=== PATIENT | male | born 1960 | race Caucasian/White ===

== ENCOUNTER 2020-09-02 08:32 | Outpatient (CLI) | payer OTHER, SELFPAY | END 2020-09-02 08:33 | disposition home or self-care (01) | LOC: CHSCOVIDVC 08:32 | PROVIDERS: PCP Nurse Practitioner Family | DX: Z23 Encounter for immunization (principal) | CPT/HCPCS: 0011A; 91301 ==

== ENCOUNTER 2020-09-30 08:17 | Outpatient (CLI) | payer OTHER, SELFPAY | END 2020-09-30 08:18 | disposition home or self-care (01) | LOC: CHSCOVIDVC 08:18 | PROVIDERS: PCP Nurse Practitioner Family | DX: Z23 Encounter for immunization (principal) | CPT/HCPCS: 0012A; 91301 ==

== ENCOUNTER 2023-10-18 09:26 | Outpatient (CLI) | payer OTHER, SELFPAY ==
[2023-10-18 10:11] LABS: Basophils Absolute Auto 0.05 K/mm3 (0.00-0.10); Basophils Percent Auto 0.9 % (0.0-1.0); Eosinophils Absolute Auto 0.18 K/mm3 (0.02-0.50); Eosinophils Percent Auto 3.3 % (1.0-6.0); Hematocrit 35.5 % (37.0-46.0); Hemoglobin 11.4 g/dL (12.4-15.3); Immature Granulocyte Absolute 0.02 K/mm3 (0.00-0.00); Immature Granulocyte Percent A 0.4 % (0.0-0.0); Immature Platelet Fraction Pct 15.9 % (1.0-7.0); Lymphocytes Absolute Auto 1.19 K/mm3 (1.10-4.50); Lymphocytes Percent Auto 21.7 % (18.0-42.0); Mean Corpuscular HGB Conc 32.1 g/dL (32-36); Mean Corpuscular Hemoglobin 26.1 pg (27.0-31.0); Mean Corpuscular Volume 81.2 fL (78.0-102.0); Mean Platelet Volume 14.6 fl (8.7-11.0); Monocytes Absolute Auto 0.32 K/mm3 (0.10-0.90); Monocytes Percent Auto 5.8 % (2.0-11.0); Neutrophils Absolute Auto 3.72 K/mm3 (1.70-7.20); Neutrophils Percent Auto 67.9 % (50.0-70.0); Platelet Count Result 115 K/mm3 (150-420); Red Blood Count 4.37 M/mm3 (4.70-6.10); Red Cell Distribution Width 14.5 % (11.6-14.4); White Blood Count 5.5 K/mm3 (4.8-10.8)
[2023-10-18 10:17] LABS: Alanine Aminotransferase 49 U/L (16-63); Alkaline Phosphatase 224 U/L (46-116); Anion Gap 7 mmol/L (4-12); Aspartate Amino Transferase 27 U/L (15-37); Bilirubin,Total 0.3 mg/dL (0.00-1.00); Blood Urea Nitrogen 10 mg/dL (7-18); Calcium 8.8 mg/dL (8.5-10.1); Carbon Dioxide 29 mmol/L (21-32); Chloride 106 mmol/L (98-108); Cholesterol 171 mg/dL (0-200); Estimated Glomerular Filt Rate > 60; Glucose 105 mg/dL (70-99); HDL Direct 35 mg/dL (40-60); LDL Cholesterol Calculated 110 mg/dL (<130); Osmolality Calculated 293 mOsm/kg (285-295); Potassium 4.2 mmol/L (3.5-5.1); Sodium 142 mmol/L (136-145); Total Protein 6.9 g/dL (6.4-8.2); Triglycerides 131 mg/dL (0-150)
== END 2023-10-18 09:27 | disposition home or self-care (01) ==
LOC: CHSLAB 09:27
PROVIDERS: PCP Family Medicine; Visit Provider Family Medicine
DX: M25.551 Pain in right hip (principal); Z13.6 Encounter for screening for cardiovascular disorders
CPT/HCPCS: 36415; 80053; 80061; 85025; 85055

== ENCOUNTER 2023-12-25 11:41 | Outpatient (CLI) | payer OTHER, SELFPAY ==
--- NOTE | ~2023-12-25 | XR_ITS ---
XR knee RT 3V 12/25/2023 12:10 INDICATION: Right knee pain PROCEDURE: 3 views right knee COMPARISON: No prior studies for comparison. FINDINGS: Fracture, dislocation or subluxation is not identified. No joint effusion. The soft tissues appear within normal limits. No foreign bodies are identified. IMPRESSION: 1: NO ACUTE BONE OR JOINT ABNORMALITY IDENTIFIED. Reviewed, dictated and finalized at location B.
--- NOTE | ~2023-12-25 | XR_ITS ---
XR hip BI 2V w AP pelvis 12/25/2023 12:10 Indication: Right hip pain Procedure: AP view of the pelvis and 2 views right each hip Comparison: No prior studies for comparison. Findings: There are sclerotic lesions of the pelvis and proximal aspect of the right femur, compatibl e with metastatic disease. No acute fracture or traumatic malalignment. Impression: 1: Multiple sclerotic lesions of the pelvis and right femur, consistent with metastases. Primary cons ideration is prostate cancer. Recommend further evaluation. Consider correlation with bone scan. Reviewed, dictated and finalized at location B. Impression: 1: Multiple sclerotic lesions of the pelvis and right femur, consistent with me tastases. Primary consideration is prostate cancer. Recommend further evaluatio n. Consider correlation with bone scan.
--- NOTE | ~2023-12-25 | XR_ITS ---
EXAMINATION: XR lumbar spine 2-3V DATE: 12/25/2023 12:10 INDICATION: Right hip and lower limb pain. Weakness. TECHNIQUE: 2 views of lumbar spine were obtained. COMPARISON: None. FINDINGS: There is 3 mm retrolisthesis of L2 on L3 and L3 on L4. There is mild chronic anterior wedgi ng of T12 vertebral body. There are sclerotic lesions in the pelvis and L4 vertebral body. There is m ildly decreased discitis at T12-L1 and L1-L2, moderately decreased disc at L2-L3, and mildly decrease d disc height at L3-L4 and L4-L5. There is multilevel facet joint osteoarthritis, severe in lower lum bar spine. IMPRESSION: 1. Sclerotic lesions of bone, consistent with metastatic disease. 2. Moderate lumbar spondylosis. Reviewed, dictated and finalized at location A.
== END 2023-12-25 11:42 | disposition home or self-care (01) ==
LOC: CHSIMG 11:43
PROVIDERS: PCP Family Medicine; Visit Provider Family Medicine
DX: M13.0 Polyarthritis, unspecified (principal); M89.9 Disorder of bone, unspecified; M43.06 Spondylolysis, lumbar region
CPT/HCPCS: 72100; 73521; 73562

== ENCOUNTER 2024-01-02 10:46 | Outpatient (CLI) | payer OTHER, SELFPAY ==
[2024-01-02 12:01] LABS: Erythrocyte Sedimentation Rate 35 mm/hr (0-20)
[2024-01-02 12:14] LABS: CRP 1.9 mg/dL (0.0-0.9)
[2024-01-02 12:22] LABS: Prostate Specific Antigen > 100.0 ng/mL (< OR = 4.0)
== END 2024-01-02 10:47 | disposition home or self-care (01) ==
LOC: CHSLAB 10:49
PROVIDERS: PCP Family Medicine; Visit Provider Family Medicine
DX: R35.1 Nocturia (principal); M89.9 Disorder of bone, unspecified
CPT/HCPCS: 36415; 84153; 85652; 86140; G0103

== ENCOUNTER 2024-02-09 11:22 | Outpatient (CLI) | payer OTHER, SELFPAY ==
--- NOTE | ~2024-02-09 | PE_ITS ---
EXAMINATION: PET skull to mid thigh DATE: 02/09/2024 14:11 INDICATION: Prostate cancer with hormone sensitive status. TECHNIQUE: 5.365 mCi of Ga-68 gozetotide was administered intravenously. Low dose computed tomography (CT) images were acquired from the base of the brain to the proximal thighs for attenuation correcti on and anatomic localization. Automated exposure control was employed. Dose-length product (DLP) was mGy-cm. Positron emission tomography (PET) images were acquired in the same distribution. COMPARISON: None FINDINGS: Head/neck: There are no pathologically enlarged lymph nodes. There are scattered sclerotic lesions of bone with increased activity. Chest: There is mild scarring at the lung apices. A calcified right lung nodule and calcified right h ilar lymph nodes are consistent with old granulomatous disease. There is mild atelectasis bilaterally . No pleural effusion. The heart size is normal. No pericardial effusion. There are normal-sized subc arinal and left hilar lymph nodes with increased activity. There are widespread sclerotic lesions of bone with increased activity. Abdomen/pelvis/proximal thighs: Calcifications in the liver and spleen are consistent with old granul omatous disease. The gallbladder, pancreas, adrenal glands, and kidneys are normal. The prostate is m oderately enlarged with maximum SUV of 6.2. There is diffuse bladder wall thickening, likely secondar y to chronic obstruction. There is a left inguinal hernia containing fat. There is diverticulosis of the colon without evidence of diverticulitis. The appendix is normal. There are no dilated loops of b owel. There are mildly enlarged bilateral external iliac, aortocaval, and left para-aortic lymph node s with increased activity. There is a normal-sized left internal iliac node with increased activity. There are widespread sclerotic lesions of bone with increased activity. IMPRESSION: 1. Moderately enlarged prostate with increased activity, consistent with primary malignancy. 2. Lymphadenopathy in the chest, retroperitoneum, and pelvis with increased activity and widespread b one lesions with increased activity, consistent with metastatic disease. Reviewed, dictated and finalized at location A. IMPRESSION: 1. Moderately enlarged prostate with increased activity, consistent with primar y malignancy. 2. Lymphadenopathy in the chest, retroperitoneum, and pelvis with increased act ivity and widespread bone lesions with increased activity, consistent with meta static disease.
== END 2024-02-09 11:23 | disposition home or self-care (01) ==
PROVIDERS: PCP Family Medicine; Visit Provider Urology
DX: C61 Malignant neoplasm of prostate (principal); R59.0 Localized enlarged lymph nodes
CPT/HCPCS: 78815; A9552

== ENCOUNTER 2024-02-13 15:33 | Outpatient (CLI) | payer OTHER, SELFPAY ==
[2024-02-13 15:53] LABS: Basophils Absolute Auto 0.04 K/mm3 (0.00-0.10); Basophils Percent Auto 0.7 % (0.0-1.0); Eosinophils Absolute Auto 0.15 K/mm3 (0.02-0.50); Eosinophils Percent Auto 2.6 % (1.0-6.0); Hematocrit 33.7 % (37.0-46.0); Hemoglobin 10.5 g/dL (12.4-15.3); Immature Granulocyte Absolute 0.04 K/mm3 (0.00-0.00); Immature Granulocyte Percent A 0.7 % (0.0-0.0); Lymphocytes Percent Auto 24.3 % (18.0-42.0); Mean Corpuscular HGB Conc 31.2 g/dL (32-36); Mean Corpuscular Volume 77.1 fL (78.0-102.0); Monocytes Absolute Auto 0.25 K/mm3 (0.10-0.90); Monocytes Percent Auto 4.3 % (2.0-11.0); Neutrophils Absolute Auto 3.87 K/mm3 (1.70-7.20); Neutrophils Percent Auto 67.4 % (50.0-70.0); Platelet Count Result 212 K/mm3 (150-420); Red Blood Count 4.37 M/mm3 (4.70-6.10); Red Cell Distribution Width 15.8 % (11.6-14.4); White Blood Count 5.8 K/mm3 (4.8-10.8)
[2024-02-13 16:54] LABS: Alanine Aminotransferase 29 U/L (16-63); Albumin Level 2.9 g/dL (3.4-5.0); Alkaline Phosphatase 493 U/L (46-116); Anion Gap 5 mmol/L (4-12); Aspartate Amino Transferase 12 U/L (15-37); Bilirubin,Total 0.3 mg/dL (0.00-1.00); Blood Urea Nitrogen 14 mg/dL (7-18); Calcium 8.8 mg/dL (8.5-10.1); Carbon Dioxide 31 mmol/L (21-32); Chloride 101 mmol/L (98-108); Estimated Glomerular Filt Rate > 60; Ferritin 243 ng/mL (26-388); Glucose 165 mg/dL (70-99); Iron 19 ug/dL (65-175); Osmolality Calculated 288 mOsm/kg (285-295); Percent Iron Saturation 8 % (12-57); Potassium 4.4 mmol/L (3.5-5.1); Sodium 137 mmol/L (136-145); Total Protein 6.6 g/dL (6.4-8.2); Vitamin B12 524 pg/mL (193-986)
[2024-02-22 00:18] LABS: Testosterone Free 1.5 pg/mL (35.0-155.0); Testosterone Total 8 ng/dL (250-1100)
== END 2024-02-13 15:34 | disposition home or self-care (01) ==
PROVIDERS: PCP Family Medicine; Visit Provider Internal Medicine Hematology & Oncology
DX: D64.9 Anemia, unspecified (principal); C61 Malignant neoplasm of prostate
CPT/HCPCS: 36415; 80053; 82607; 82728; 83540; 83550; 84402; 84403; 85025

== ENCOUNTER 2024-02-19 10:51 | Outpatient (CLI) | payer OTHER, SELFPAY ==
[2024-02-19 11:25] LABS: Partial Thromboplastin Time 28.5 Sec (23.9-30.70); Prothrombin Time 11.4 Seconds (9.50-12.1)
== END 2024-02-19 10:52 | disposition home or self-care (01) ==
LOC: CHSLAB 10:52
PROVIDERS: PCP Family Medicine; Visit Provider Surgery
DX: C61 Malignant neoplasm of prostate (principal); R10.13 Epigastric pain; R94.5 Abnormal results of liver function studies; D50.9 Iron deficiency anemia, unspecified
CPT/HCPCS: 36415; 85610; 85730

== ENCOUNTER 2024-02-20 07:30 | Outpatient (CLI) | payer OTHER, SELFPAY ==
--- NOTE | ~2024-02-20 | NM_ITS ---
EXAMINATION: NM bone scan whole body DATE: 02/20/2024 11:12 INDICATION: Prostate cancer TECHNIQUE: 25.2 mCi Tc-99m HDP was administered intravenously. Delayed whole-body scintigrams were o btained. COMPARISON: PET/CT dated 02/09/2024 FINDINGS: Similar pattern of widespread uptake throughout the axial and appendicular skeleton as seen on the pr ior PSMA PET study. The most prominent lesions are present at the pelvis and proximal right femur. Th e lesions appear more numerous and conspicuous on the prior study likely reflecting increased sensiti vity with multiple small lesions seen in the proximal right femur and bilateral proximal humeri which are in the cerebral or nearly indiscernible on the current study. IMPRESSION: 1. Numerous scattered foci of abnormal bone uptake throughout the axial and appendicular skeleton con sistent with widespread metastatic disease. Of note there is more extensive disease than evident on t he current study which is better appreciated on the more sensitive prior PSMA PET study. Reviewed, dictated and finalized at location A. IMPRESSION: 1. Numerous scattered foci of abnormal bone uptake throughout the axial and jose endicular skeleton consistent with widespread metastatic disease. Of note there is more extensive disease than evident on the current study which is better ap preciated on the more sensitive prior PSMA PET study.
== END 2024-02-20 07:31 | disposition home or self-care (01) ==
PROVIDERS: PCP Family Medicine; Visit Provider Internal Medicine Hematology & Oncology
DX: C61 Malignant neoplasm of prostate (principal)
CPT/HCPCS: 78306; A9503

== ENCOUNTER 2024-02-25 03:00 | Day surgery (SDC) | payer OTHER, SELFPAY ==
--- NOTE | 2024-02-18 15:01 | PC.NURSE ---
Report to the Outpatient Waiting Room, entrance under the green pavilion located off [facility], at time 10:15 AM on date 02/25/24 . Planned Procedure Time: __12:15PM .? Time changes happen often and if your time is changed the preop area will call you the afternoon before. - You and your visitor will be asked to self-screen and do not enter if you have any COVID symptoms. Please call surgeon if you need to reschedule. - A mask is optional within the hospital at this time. Patients may have clear liquids (water, carbonated beverages, clear teas, apple juice) until 3 hours prior to surgery( 9:15AM) with a maximum of 20 ounces. - No food from midnight until time of surgery and no smoking - Infants may have breast milk until 4 hours before surgery, formula 6 hours prior to surgery. - Children will be allowed to drink immediately following surgery.? If applicable, please bring a bottle or sippy cup to assist with drinking. Juice, water, soda, and popsicles are readily available.? For infants on formula, please bring formula the day of surgery.? Pacifiers are allowed. Take only the following medications with a SIP of water on the morning of surgery: _OXYCODONE IF NEEDED FOR PAIN DO NOT STOP ANY OF YOUR OTHER PRESCRIPTION MEDICATIONS PRIOR TO SURGERY EXCEPT THE FOLLOWING Medications to discontinue per physician HOLD ALL VITAMINS AND SUPPLEMENTS 3 DAYS PRE OP Date to take last dose 02/21/24 Please no make-up, nail frisian, hairspray, perfume, deodorant, or body powder the day of surgery.? No jewelry (including any body piercings) or valuables the day of surgery, leave them at home.? Please take a shower or bath the night before, or the morning of, surgery with an antibacterial soap.? Wear comfortable, loose fitting clothing.? Children are encouraged to wear pajamas. - Jewelry must be removed prior to entering the operating room.? Rings and piercings that are not removed may be cut off. - The hospital will not accept responsibility for valuables.? - Please leave all valuables, including medications, at home the day of surgery. If you are going home after surgery, a licensed shuttle driver must drive you home.? - NO public transportation without another adult if you receive anesthesia. - We recommend that an adult stay with you for 24 hours following discharge. - We also recommend that you do not drive, make important decision, drink alcoholic beverages, or take any drugs that were not prescribed by your health care provider for at least 24 hours after your discharge time. For Pediatric surgeries, we recommend two adults accompany the child home. Follow any additional instructions given to you from your surgeon. Telephone instructions given to _PT and asked if any additional questions and then verbalized understanding. Patient advised to call surgeon office or pre surgery nurse liaison [phone] if any additional questions.
[2024-02-18 15:11] VITALS: BMI 27.5
--- NOTE | 2024-02-24 17:18 | P.SS_ITS ---
Same Day Admit/Disch: [facility] History of Present Illness Chief complaint: Prostate Ca Narrative: Hao Rea is a 63 year old male who presented with right hip pain and was found to have metastatic prostate cancer. He is to undergo chemotherapy as well as radiation therapy. Was requested to place a Port-A-Cath for IV access for chemotherapy. He is taken to surgery at this time for Port-A-Cath placement PMFSH Past Medical History Medical History GERD (gastroesophageal reflux disease) Social History Social History Smoking status: Never smoker Second hand tobacco smoke exposure: No Alcohol intake: current Drinks per week: 1 Substance use: never Living arrangements: with family Spiritual care concerns: No Same Day Admit/Disch: Med Pre-admit Medications Home Medications Medication Instructions Recorded Confirmed Type tamsulosin 0.4 mg capsule 0.4 mg PO DAILY #90 caps 01/02/24 02/25/24 Rx calcium 600 mg (as 1 tablet PO DAILY 02/18/24 02/25/24 History carbonate)-vitamin D3 10 mcg (400 unit) tablet (Calcium 600 + D(3)) darolutamide 300 mg tablet 300 mg PO BID 02/18/24 02/25/24 History fentanyl 12 mcg/hr transdermal 1 patch transdermal Q72H 02/18/24 02/25/24 History patch multivitamin 1 tablet PO DAILY 02/18/24 02/25/24 History oxycodone-acetaminophen 5 mg-325 1 tablet PO PRN PRN Pain 02/18/24 02/25/24 History mg tablet ibuprofen 200 mg capsule 200 mg PO Q6H PRN Pain, Moderate 02/20/24 02/25/24 History Review of Systems Review of Systems All systems reviewed & are unremarkable except as noted in HPI and below (HPI) Exam Const: General: comfortable, no acute distress, alert and awake HENMT: Head: normocephalic and atraumatic Mouth: Yes Normal oral and palatal mucosa present Eyes: Conjunctivae: conjunctivae normal Pupils: Equal, round and reactive pupils present EOM: EOMs intact bilaterally Neck: Neck: normal visual inspection, no lymphadenopathy and nontender Resp: Effort & Inspection: normal respiratory effort Auscultation: clear to auscultation bilaterally Cardio: Rate: regular rate Rhythm: regular rhythm Heart sounds: no gallops, no murmurs and no rubs GI: Inspection: non-distended GI Palp: Yes Soft to palpation, No Tenderness to palpation present (GI), No Hepatomegaly present and No Splenomegaly present Skin: Lesions: no lesions Rashes: no rashes Neuro: General: no focal motor deficits and CN's II-XI intact bilaterally Cranial nerves: Yes Equal, round and reactive pupils present, Yes Bilaterally intact EOM present, Yes facial symmetry and Yes Midline tongue present Speech: normal speech Motor exam (neuro): 5/5 motor strength present thr oughout and Motor abnormalities not present Extrem: General: no clubbing, cyanosis or edema and edema Psych: Affect: normal affect Thought process: Normal thought process present Insight: Good insight present (Psych) DS: Summary Time Spent with Patient Time attestation: Total time spent providing and/or coordinating discharge services: DS: Admitting Diagnosis Discharge Date 02/25/2024 Admitting Diagnosis * Metastatic prostate cancer * Inadequate venous access for chemotherapy-plan to proceed with Port-A-Cath placement. I discussed the procedure, risks, alternatives, benefits with the patient. All questions were answered. He understands and wishes to go ahead. DS: Discharge Diagnosis Discharge Diagnosis (1) Prostate cancer: Code(s): C61 - Malignant neoplasm of prostate Status: Acute (2) Greater trochanteric pain syndrome of right lower extremity: Code(s): M25.551 - Pain in right hip Status: Acute (3) Admission for fitting of Port-A-Cath: Code(s): Z45.2 - Encounter for adjustment and management of vascular access device Status: Acute Assessment and Plan: Left subclavian vein Port-A-Cath placed under fluoroscopy and using ultrasound 02/25/[address] Collins Discharge Plan Discharge Patient Disposition: Home, Self-Care Discharge Instructions: Medications: Patient to resume all previous home medication Take Tylenol for postoperative pain. If this is not adequate, okay to take the Percocet or the ibuprofen you already have. Treatments: May bathe or shower tomorrow. May return to work or driving in 24 hours unless taking narcotic pain medications Follow-up with medical oncologist for chemotherapy. Only need to see Surgeon for follow up if having problems. Stand Alone Forms: General Discharge Instructions Follow-up/Referrals: Jadon Dominguez MD [Physician] - Keep Reg. Scheduled Appt. Discharge Medications: Continued ibuprofen 200 mg Capsule 200 mg PO Q6H PRN (Reason: Pain, Moderate) oxycodone-acetaminophen 5-325 mg tablet 1 tablet PO PRN PRN (Reason: Pain) fentanyl 12 mcg/hr Patch 72 Hour 1 patch TRANSDERMAL Q72H darolutamide 300 mg Tablet 300 mg PO BID calcium carbonate-vitamin D3 [Calcium 600 + D(3)] 600 mg-10 mcg (400 unit) Tablet 1 tablet PO DAILY multivitamin Tablet 1 tablet PO DAILY tamsulosin 0.4 mg capsule 0.4 mg PO DAILY Qty: 90 0RF
--- NOTE | ~2024-02-25 | XR_ITS ---
XR chest port-a-cath/central Ordering provider: Jovanny Collins MD History: 63 years Male with . POST-OP, INSERTION SARKIS CATH . Comparison: July 19, 2009 FINDINGS: MEDIASTINUM: The cardiac silhouette is slightly enlarged. Left Port-A-Cath with the tip overlying sup erior vena cava. Congestive tl. LUNGS: No infiltrates, effusions or pneumothorax. prominent markings in the lower lobes. OTHER: No free air under the diaphragm. IMPRESSION: No acute cardiopulmonary pathology. Reviewed, dictated and finalized at location A.
--- NOTE | ~2024-02-25 | XR_ITS ---
EXAMINATION: XR fl guide central line place DATE: 02/25/2024 13:58 INDICATION: Port placement. TECHNIQUE: 2 intraoperative fluoroscopic views of the chest were obtained. I was not present. Fluoros copy exposure time was 391 seconds. COMPARISON: None. FINDINGS: There is a left subclavian port with tip at superior cavoatrial junction. IMPRESSION: 1. Port tip at superior cavoatrial junction. Reviewed, dictated and finalized at location A.
[2024-02-25 10:26] VITALS: BP 108/66; PULSE 64; RESP 18; TEMP 36.6; O2SAT 100
--- NOTE | 2024-02-25 10:39 | P.PNAN_ITS ---
Anes - Initial Pre Proc Eval Procedure: Operation Date: 02/25/24 12:15 Proposed Procedures p Insertion Az Cath - Jovanny Collins MD Date/Time: 02/25/24 10:39 Surgeon: Jovanny Collins MD Pre Op Diagnosis: Prostate Ca Patient Data Age: 63 Gender: M Height: 1.91 m Weight: 99.4 kg Last Vital Signs Temp 36.6 C 02/25/24 10:26 Pulse 64 02/25/24 10:26 Resp 18 02/25/24 10:26 BP 108/66 02/25/24 10:26 Pulse Ox 100 02/25/24 10:26 O2 Del Method Room Air 02/25/24 10:26 Allergies Allergy/AdvReac Type Severity Reaction Status Date / Time No Known Allergies Allergy Verified 02/18/24 14:50 Home Medications Medication Instructions Recorded Confirmed Type tamsulosin 0.4 mg capsule 0.4 mg PO DAILY #90 caps 01/02/24 02/25/24 Rx calcium 600 mg (as 1 tablet PO DAILY 02/18/24 02/25/24 History carbonate)-vitamin D3 10 mcg (400 unit) tablet (Calcium 600 + D(3)) darolutamide 300 mg tablet 300 mg PO BID 02/18/24 02/25/24 History fentanyl 12 mcg/hr transdermal 1 patch transdermal Q72H 02/18/24 02/25/24 History patch multivitamin 1 tablet PO DAILY 02/18/24 02/25/24 History oxycodone-acetaminophen 5 mg-325 1 tablet PO PRN PRN Pain 02/18/24 02/25/24 History mg tablet ibuprofen 200 mg capsule 200 mg PO Q6H PRN Pain, Moderate 02/20/24 02/25/24 History Patient hx anesthesia problems: none Family hx anesthesia problems: none Results Review: All pre-operative results and documents have been reviewed as part of the pre- operative evaluation. [facility] Past Medical History Medical History GERD (gastroesophageal reflux disease) Social History Social History Smoking status: Never smoker Second hand tobacco smoke exposure: No Alcohol intake: current Drinks per week: 1 Substance use: never Living arrangements: with family Spiritual care concerns: No Anes - Eval Final PreProcedure Day of Procedure 02/25/24 10:39 Patient weight: overweight Heart: regular rate and rhythm Lungs: clear to auscultation Airway: Mallampati scale class II Neurological: alert and oriented Last oral intake: >/= 8 hours ASA classification: III Emergent: no Anesthetic plan: proceed Anesthesia type and monitoring: general GIVS and standard monitoring Results Review: All pre-operative results and documents have been reviewed as part of the pre- operative evaluation. Informed Consent: The patient's anesthetic plan and its attendant risks and benefits were discussed with the patient/family/POA. Questions were solicited and answers provided to the satisfaction of the patient/family/POA.
[2024-02-25] MEDS: KETOROLAC 15 MG/ML VIAL (*BKC) IV PUSH (10:40)
[2024-02-25] MEDS: LACTATED RINGERS 1,000 ML 30 ML IV CONT (10:40)
--- NOTE | 2024-02-25 11:13 | WPDHPUPDATE1 ---
History and Physical Update Update Date/Time: 02/25/24 11:13 History and Physical has been reviewed, including an updated exam of the patient. There are NO changes in the patient's condition. Risks, benefits, and alternatives have been discussed and questions answered. Patient agrees to proceed with procedure.
--- NOTE | 2024-02-25 12:10 | WPDANESEPPF ---
Anes - Initial Pre Proc Eval Procedure: Operation Date: 02/25/24 12:15 Proposed Procedures p Insertion Az Cath - Jovanny Collins MD Date/Time: 02/25/24 12:10 Surgeon: Jovanny Collins MD Pre Op Diagnosis: Prostate Ca Patient Data Age: 63 Gender: M Height: 1.91 m Weight: 99.4 kg Last Vital Signs Temp 97.8 F 02/25/24 10: Pulse 64 02/25/24 10:26 Resp 18 02/25/24 10:26 BP 108/66 02/25/24 10:26 Pulse Ox 100 02/25/24 10:26 O2 Del Method Room Air 02/25/24 10:26 Allergies Allergy/AdvReac Type Severity Reaction Status Date / Time No Known Allergies Allergy Verified 02/18/24 14:50 Home Medications Medication Instructions Recorded Confirmed Type tamsulosin 0.4 mg capsule 0.4 mg PO DAILY #90 caps 01/02/24 02/25/24 Rx calcium 600 mg (as 1 tablet PO DAILY 02/18/24 02/25/24 History carbonate)-vitamin D3 10 mcg (400 unit) tablet (Calcium 600 + D(3)) darolutamide 300 mg tablet 300 mg PO BID 02/18/24 02/25/24 History fentanyl 12 mcg/hr transdermal 1 patch transdermal Q72H 02/18/24 02/25/24 History patch multivitamin 1 tablet PO DAILY 02/18/24 02/25/24 History oxycodone-acetaminophen 5 mg-325 1 tablet PO PRN PRN Pain 02/18/24 02/25/24 History mg tablet ibuprofen 200 mg capsule 200 mg PO Q6H PRN Pain, Moderate 02/20/24 02/25/24 History Patient hx anesthesia problems: none Family hx anesthesia problems: none Results Review: All pre-operative results and documents have been reviewed as part of the pre-operative evaluation. [facility] Past Medical History Medical History GERD (gastroesophageal reflux disease) Social History Social History Smoking status: Never smoker Second hand tobacco smoke exposure: No Alcohol intake: current Drinks per week: 1 Substance use: never Living arrangements: with family Spiritual care concerns: No Anes - Eval Final PreProcedure Day of Procedure 02/25/24 12:10 Patient weight: normal Heart: regular rate and rhythm Lungs: clear to auscultation Airway: Mallampati scale class II Neurological: alert and oriented Last oral intake: >/= 8 hours ASA classification: II Emergent: no Anesthetic plan: proceed Anesthesia type and monitoring: general GIVS and standard monitoring Results Review: All pre-operative results and documents have been reviewed as part of the pre-operative evaluation. Prostate ca w bone mets. Pt prev in excellent health without restriction. Now for portacath for initiation of chemo. Informed Consent: The patient's anesthetic plan and its attendant risks and benefits were discussed with the patient/family/POA. Questions were solicited and answers provided to the satisfaction of the patient/family/POA.
[2024-02-25] MEDS: ceFAZolin 2 GM/D5W 50 ML 2 GM/50 ML BAG IVPB (12:26)
[2024-02-25] MEDS: BUPIVACAINE/EPINEPHRINE 0.5% 50 ML VIAL 20 ML INFILTRATE (12:49)
[2024-02-25] MEDS: HEPARIN SODIUM 5,000 UNITS/ML VIAL 1000 UNITS IRRIGATION (12:53)
[2024-02-25 14:04] VITALS: BP 102/54; PULSE 63; RESP 16; O2SAT 99
[2024-02-25 14:34] VITALS: BP 104/61; PULSE 56; RESP 16
--- NOTE | 2024-02-25 14:44 | W.PM.PROC2 ---
Procedure Note - Detailed Date of Procedure 02/27/24 Pre-op Diagnosis Prostate Ca, inadequate venous access for chemotherapy Post-op Diagnosis Same Procedure Performed Attempted placement left internal jugular vein Port-A-Cath, placement left subclavian Port-A-Cath using ultrasound and under fluoroscopy Surgeon Jovanny Collins MD Plumbing Assembler Flower SYED Anesthesia General (G IV S) and Local Indications Patient has prostate cancer with bony metastasis that are painful. He is going to be receiving chemotherapy and is taken to surgery now for placement of a Port-A-Cath for vascular access. Findings There was a very narrow angle between left clavicle and 1st rib. This made attempts at the left subclavian insertion quite difficult. I tried extensively to place the Port-A-Cath via the left internal jugular vein but there was an acute angulation at the left innominate vein that I could not get the Port-A-Cath tubing past. Eventually, under steep Trendelenburg, I was able to get left subclavian access and the Port-A-Cath placed at the subclavian position. This was a very difficult placement. It took 90 minutes which is 3 times longer than usual. Blood loss was at least 50 cc which is 5 times or more what it usually is. Multiple punctures and uses of C-arm as well as 3 different Port-A-Cath trays were required. This was 1 of the most difficult Port-A-Cath placements I have performed. Description of Procedure The patient was taken to surgery and anesthesia was introduced. The left subclavian and left neck were prepped and draped. I marked the proposed incision for the Port-A-Cath on the left chest just under the clavicle. Local was then infiltrated in this area including the subcutaneous and pectoralis. Incision was made and dissection was carried down through the subcutaneous. Cautery was used for hemostasis. Dissection was continued through the pectoralis major fascia. The fascia was then elevated and a subfascial pocket was then created opposite the clavicle. From there, attempts were made to pass between the clavicle and the 1st rib. None of these were successful. We draped out the ultrasound so that it could be used in the sterile field. Under ultrasound guidance I cannulated the left internal jugular vein and was able to pass a guidewire to the superior vena cava. Passage of the guidewire did require some maneuvering and due to the acute angulation between the internal jugular vein and the innominate vein on the left side. Eventually it did pass. I then measured the length of Port-A-Cath that would be needed using C-arm fluoroscopy and cut the Port-A-Cath to the appropriate length. I then passed serial dilators over the guidewire. Each of these passed into the upper portion of the superior vena cava. The largest dilator with the sleeve was then also passed over the guidewire. All of these dilators and the sleeve were passed using C-arm fluoroscopy for guidance. The dilator and sleeve also was in the upper superior vena cava. I removed the dilator and the guidewire, leaving the sleeve. I then attempted to pass the Port-A-Cath tubing down the sleeve and into the superior vena cava. I tried maneuvering and shortening the sleeve but still could not get the Port-A-Cath to pass into the left innominate vein. I then passed the large introducer or dilator through the sleeve and was able to maneuver it into the superior vena cava. We then got out another Port-A-Cath kit. I passed a new guidewire through the dilator and into the superior vena cava. I then passed the sleeve and dilator over the guidewire into what appeared to be good position. Trying to keep the sleeve as straight as possible, I removed the guidewire and introducer. Unfortunately, the sleeve kinked and again I was unable to pass the Port-A-Cath tubing beyond the internal jugular vein. I then removed the sleeve and the Port-A-Cath tubing. Using ultrasound, I cannulated the internal jugular vein at a different location. This time, I was unable to get even the Port-A-Cath guidewire to pass into the left innominate vein. The guidewire was then removed. Pressure was held on the neck. I placed the patient in steep Trendelenburg. I took 1 more try at cannulating the left subclavian vein and was at this point successful. The guidewire passed into the superior vena cava by fluoroscopy. Patient was taken out of Trendelenburg and placed in slight reverse Trendelenburg. Using fluoroscopy, I measured the length of the Port-A-Cath tubing that would be needed. This was on the 3rd Port-A-Cath that I had opened. The Port-A-Cath was cut to the appropriate length. Serial dilators were passed over the guidewire and finally the largest dilator and sleeve were passed. The guidewire and dilator were removed. Port-A-Cath passed through the sleeve and into the superior vena cava by fluoroscopy. The sleeve was removed. Port-A-Cath was checked and aspirated blood easily. It flushed very easily as well. It was checked both before closure of the pocket and after closure of the pocket and worked well on both occasions. I then used 3-0 silk suture and sutured the Port-A-Cath to the pectoralis major muscle. I closed the pocket with running 2 layer closure of 2-0 Vicryl. The skin was closed with running 4-0 Monocryl skin suture. The wound was dressed with Exofin surgical adhesive. Sponge and needle counts were correct x2. Patient was awakened and taken to the step-down unit in good condition. Implants Vortex Port-A-Cath left subclavian position tip in distal SVC right atrial junction Estimated Blood Loss -50 Drains No Packing No Pathology None sent Complications None Condition Stable Disposition Same day [facility] Billing Surgery - Charge Forward: Surgery Billing (Attempted placement of left internal jugular vein Port-A-Cath, placement left subclavian vein Port-A-Cath under fluoroscopy and using ultrasound; apply -22 modifier for increased difficulty)
[2024-02-25 15:04] VITALS: BP 105/60; PULSE 51; RESP 16
== END 2024-02-25 15:15 | disposition home or self-care (01) ==
PROVIDERS: PCP Family Medicine; Visit Provider Surgery
PROC: (CPT 36561; principal; 2024-02-25 12:15)
DX: C61 Malignant neoplasm of prostate (principal); K21.9 Gastro-esophageal reflux disease without esophagitis; Z79.891 Long term (current) use of opiate analgesic; Z79.1 Long term (current) use of non-steroidal anti-inflammatories (NSAID)
CPT/HCPCS: 36561; 77001; C1788; J0690; J1100; J1644; J1885; J2003; J2405; J2704; J3010; J7030; J7120

== ENCOUNTER 2024-04-21 11:41 | Outpatient (CLI) | payer MEDICARE, OTHER, SELFPAY ==
--- NOTE | ~2024-04-21 | XR_ITS ---
XR chest 2V Ordering provider: Heber Fairbanks DO History: 63 years Male with . R06.00 - Dyspnea, SOB . Comparison: None. FINDINGS: MEDIASTINUM: The cardiac silhouette is not enlarged. Left Port-A-Cath with the tip overlying the supe rior vena cava. LUNGS: No infiltrates, effusions or pneumothorax. OTHER: No free air under the diaphragm. IMPRESSION: No acute cardiopulmonary pathology. Reviewed, dictated and finalized at location A. STANT FINANCE DIRECTOR
--- NOTE | 2024-04-21 11:55 | ECG_ITS ---
Test Date: 2024-04-21 12:10:51 Measurements Intervals [place] Rate: 78 P: 63 WY: 161 QRS: 65 QRSD: 93 T: 58 QT: 372 QTc: 424 Interpretive Statements SINUS RHYTHM No previous ECG available for comparison Electronically Signed On 04-21-2024 14:18:26 MONEY EXAMINER by Sterling Reyes M.D.
[2024-04-21 11:58] LABS: Hematocrit 37.7 % (37.0-46.0); Hemoglobin 12.3 g/dL (12.4-15.3); Immature Platelet Fraction Pct 16.7 % (1.0-7.0); Mean Corpuscular HGB Conc 32.6 g/dL (32-36); Mean Corpuscular Hemoglobin 25.9 pg (27.0-31.0); Mean Corpuscular Volume 79.4 fL (78.0-102.0); Platelet Count Result 92 K/mm3 (150-420); Red Blood Count 4.75 M/mm3 (4.70-6.10); Red Cell Distribution Width 18.8 % (11.6-14.4); White Blood Count 3.4 K/mm3 (4.8-10.8)
[2024-04-21 12:34] LABS: SARS-CoV-2 RNA PCR Negative (Negative)
[2024-04-21 12:39] LABS: Influenza A QL RT-PCR Negative (Negative); Influenza B QL RT-PCR Negative (Negative); RSV RNA, RT-PCR Negative (Negative)
[2024-04-21 12:52] LABS: Band Neutrophils Percent 1 % (0-6); Basophils Absolute Manual 0.06 K/mm3 (0-0.1); Basophils Percent Manual 2 % (0-1); Eosinophils Percent Manual 0 % (1-6); Lymphocytes Absolute Manual 1.15 K/mm3 (1.1-4.5); Lymphocytes Percent Manual 34 % (18-44); Monocytes Absolute Manual 0.13 K/mm3 (0.1-0.90); Monocytes Percent Manual 4 % (3-9); Neutrophils Absolute Manual 1.97 K/mm3 (1.3-6.7); Neutrophils Percent Manual 57 % (46-73); Platelet Estimate Decreased (Adequate); Total Cells Counted 100
[2024-04-21 16:27] LABS: Albumin Level 3.5 g/dL (3.4-5.0); Alkaline Phosphatase 92 U/L (46-116); Anion Gap 12 mmol/L (4-12); Aspartate Amino Transferase 16 U/L (15-37); Bilirubin,Total 0.5 mg/dL (0.00-1.00); Blood Urea Nitrogen 13 mg/dL (7-18); Carbon Dioxide 24 mmol/L (21-32); Chloride 104 mmol/L (98-108); Estimated Glomerular Filt Rate > 60; Glucose 97 mg/dL (70-99); Osmolality Calculated 290 mOsm/kg (285-295); Potassium 4.8 mmol/L (3.5-5.1); Sodium 140 mmol/L (136-145); Troponin I 6.9 ng/L (0.00-60.4)
[2024-04-21 17:02] LABS: Alanine Aminotransferase 27 U/L (16-63); Calcium 9.2 mg/dL (8.5-10.1)
== END 2024-04-21 11:42 | disposition home or self-care (01) ==
LOC: CHSLAB 11:44
PROVIDERS: PCP Family Medicine; Visit Provider Family Medicine
DX: C61 Malignant neoplasm of prostate (principal); R00.0 Tachycardia, unspecified; R06.00 Dyspnea, unspecified; Z20.822 Contact with and (suspected) exposure to COVID-19
CPT/HCPCS: 36415; 71046; 80053; 84484; 85025; 85055; 87637; 93005

== ENCOUNTER 2024-04-22 13:37 | Outpatient (CLI) | payer MEDICARE, OTHER, SELFPAY ==
--- NOTE | ~2024-04-22 | CT_ITS ---
EXAMINATION: CTA chest PE protocol DATE: 04/22/2024 14:38 INDICATION: Pulmonary emphysema without acute cor pulmonale TECHNIQUE: Computed tomography (CT) pulmonary angiogram of the chest was performed with 100 mL Omnipa que-350 intravenous contrast. Additional 3D reconstructions utilizing coronal maximum intensity proje ction (MIP) were performed. Automated exposure control and iterative reconstruction technique were em ployed. The dose-length product was 100 mGy-cm. COMPARISON: None FINDINGS: No pulmonary embolism. Mild dependent atelectasis in the bilateral lower lobes. No pneumonia, pulmona ry edema, pleural effusion or pneumothorax. Heart size is normal. No pericardial effusion. Thoracic a tex is normal in caliber with no dissection. No pathologically enlarged thoracic lymphadenopathy. Mu ltiple hepatic and splenic calcific lesions consistent with old granulomatous disease. There are few scattered diverticula along the visualized colon without adjacent from trace stranding to suggest div erticulitis. There are widespread sclerotic bone lesions in the spine, ribs, sternum and at the bilat eral shoulders consistent with known metastatic prostate cancer. IMPRESSION: 1. No pulmonary embolism or other acute cardiopulmonary disease. 2. Widespread sclerotic bone lesions consistent with metastatic prostate cancer. Reviewed, dictated and finalized at location A. ER MACHINE OPERATOR IMPRESSION: 1. No pulmonary embolism or other acute cardiopulmonary disease. 2. Widespread sclerotic bone lesions consistent with metastatic prostate cancer .
--- NOTE | 2024-04-23 14:39 | WPDHOLTEREM ---
Holter/Event Monitor Holter/Event Monitor Date of procedure: 04/22/24 Holter/Event Procedure: 24 Hr Holter Monitor Indications: Tachycardia Conclusion: 1. 24 hour holter monitor on 04/22/24. 2. Predominant rhythm is sinus rhythm. HR range 60-197 bpm; average 109 bpm. 3. There are 350 premature supraventricular complexes, 15 supraventricular couplets, 5 supraventricular bigeminy and 3 supraventricular trigeminy. There are 6 episodes of supraventricular tachycardia, fastest at 156 bpm and longest lasting 21 beats. 4. There are 1,912 premature ventricular complexes, 41 ventricular couplets. There are 2 episodes of ventricular tachycardia fastest at 197 bpm and longest lasting 18 beats. 5. No sinoatrial or atrioventricular blocks. No significant pauses greater than 2 seconds. 6. No symptoms available for correlation.
== END 2024-04-22 13:38 | disposition home or self-care (01) ==
LOC: CHSIMG 13:39
PROVIDERS: PCP Family Medicine; Visit Provider Family Medicine
DX: I26.99 Other pulmonary embolism without acute cor pulmonale (principal); M89.9 Disorder of bone, unspecified
CPT/HCPCS: 71275; 93225; 93226; Q9967

== ENCOUNTER 2024-05-13 12:54 | Outpatient (CLI) | payer OTHER, MEDICARE, SELFPAY ==
--- NOTE | 2024-05-13 12:58 | ECHO_ITS ---
Patient Info Name: Hao Rea Age: 63 years : 1960 Gender: Male Ht: 75 in Wt: 230 lbs BSA: 2.37 m2 HR: 70 bpm BP: 108 / 68 mmHg Technical Quality: Good Exam Date: 05/13/2024 1:02 PM Exam Location: Echo Lab Patient Status: Outpatient Admit Date: 05/13/2024 Staff Ordering Physician: Heber Fairbanks DO Bait Packer: Claire Elizabeth RDCS Attending Provider: Heber Fairbanks DO Referring Physician: Magdi AMES; Exam Type: CA echo doppler color flow Study Info Complete two-dimensional, color flow and Doppler transthoracic echocardiogram is performed. Summary 1. Complete two-dimensional, color flow and Doppler transthoracic echocardiogram is performed. 2. Left ventricular chamber dimension is normal. 3. Left ventricular systolic function is normal, estimated at 60-65%. 4. The left ventricular diastolic function is abnormal. 5. E/e' 12 is mildly elevated. 6. Left atrial chamber dimension is severely enlarged. 7. Right atrial chamber dimension is mildly enlarged. 8. There is mild aortic valve sclerosis. 9. There is mild to moderate aortic valve regurgitation. 10. The mitral valve has moderate posterior prolapse. 11. There is anterior directed eccentric mild to moderate mitral valve regurgitation. 12. There is trace tricuspid valve regurgitation. 13. No pulmonary hypertension, estimated pulmonary arterial systolic pressure is 20 mmHg. 14. The prox ascending aorta size is mildly dilated at 4.4 cm. Left Ventricle E/e' 12 is mildly elevated. Left ventricular chamber dimension is normal. Left ventricular systolic function is normal, estimated at 60-65%. The left ventricular diastolic function is abnormal. Right Ventricle Right ventricular systolic function is normal and with normal TAPSE 3.3 cm. Right ventricular chamber dimension is normal. Left Atria Left atrial chamber dimension is severely enlarged. Right Atria Right atrial chamber dimension is mildly enlarged. Aortic Valve The aortic valve is trileaflet. There is mild aortic valve sclerosis. There is no aortic valve stenosis. There is mild to moderate aortic valve regurgitation. Pulmonic Valve There is no pulmonic regurgitation. Mitral Valve The mitral valve has moderate posterior prolapse. There is anterior directed eccentric mild to moderate mitral valve regurgitation. There is no mitral valve stenosis. Tricuspid Valve There is trace tricuspid valve regurgitation. No pulmonary hypertension, estimated pulmonary arterial systolic pressure is 20 mmHg. Pericardium/Pleural There is no pericardial effusion. Inferior Vena Cava Normal inferior vena cava with >50% collapse upon inspiration consistent with normal right atrial pressure, 5 mmHg. Aorta The aortic root size at the sinus of Valsalva is normal. The prox ascending aorta size is mildly dilated at 4.4 cm. Left Ventricular Outflow Tract Name Value Normal LVOT 2D LVOT Diameter 2.5 cm LVOT Doppler LVOT Peak Velocity 137 cm/s LVOT Peak Gradient 8 mmHg LVOT Mean Gradient 4 mmHg LVOT VTI 28 cm LVOT VTI/AV VTI Ratio 0.8 LVOT Stroke Volume 136 ml Pulmonic Valve Name Value Normal PV Doppler PV Peak Velocity 101 cm/s PV Peak Gradient 4 mmHg PV Regurgitation Doppler NC Peak End Diastolic Velocity 87 cm/s Mitral Valve Name Value Normal MV Doppler MV Peak Gradient 9 mmHg MV Mean Gradient 4 mmHg MV Decel Osborne 460 cm/s2 MV PHT 74 ms MV Area (PHT) 3.0 cm2 4.0-5.0 MV Area (Cont Eq VTI) 2.5 cm2 MV Regurgitation Doppler MR Peak Gradient 69 mmHg MV Diastolic Function MV E Peak Velocity 117 cm/s MV A Peak Velocity 95 cm/s MV E/A 1.2 MV Decel Time 254 ms Tricuspid Valve Name Value Normal TV Regurgitation Doppler TR Peak Velocity 197 cm/s TR Peak Gradient 15 mmHg Estimated PAP/RSVP RA Pressure 5 mmHg <=5 PA Systolic Pressure 20 mmHg <36 RV Systolic Pressure 20 mmHg <36 Aortic Valve Name Value Normal AV Doppler AV Peak Velocity 186 cm/s AV Peak Gradient 14 mmHg AV Mean Gradient 7 mmHg AV VTI 37 cm AV Area (Cont Eq VTI) 3.6 cm2 >=3.0 AV Area (Cont Eq Jarvis) 3.5 cm2 AV V1/V2 Ratio 0.73 AV Regurgitation 2D LVOT Area 4.8 cm2 AV Regurgitation Doppler AR Decel Time 2,147 ms AR Decel Osborne 225 cm/s2 AR PHT 623 ms Ventricles Name Value Normal LV Dimensions 2D/MM IVS Diastolic Thickness (2D) 0.8 cm 0.6-1.0 LVID Diastole (2D) 6.8 cm 4.2-5.8 LVIW Diastolic Thickness (2D) 0.9 cm 0.6-1.0 LVID Systole (2D) 4.1 cm 2.5-4.0 LVOT Diameter 2.5 cm LV Mass (2D Cubed) 247.05 g 88.00-224.00 LV Mass Index (2D Cubed) 104 g/m2 49-115 Relative Wall Thickness (2D) 0.25 LV Fractional Shortening/Ejection Fraction 2D/MM LV Fractional Shortening (2D) 40 % 25-43 LV EF (2D Teicholz) 69 % 52-72 LV Diastolic Volume (4C MOD) 245 ml LV EF (4C MOD) 73 % LV Diastolic Volume (2C MOD) 216 ml LV EF (2C MOD) 66 % LV Diastolic Volume (BP MOD) 234 ml 62-150 LV Diastolic Volume Index (BP MOD) 99 ml/m2 34-74 LV Systolic Volume (BP MOD) 72 ml 21-61 LV Systolic Volume Index (BP MOD) 30 ml/m2 11-31 LV EF (BP MOD) 69 % 52-72 LV Diastolic Length (4C) 9.7 cm LV Systolic Length (4C) 7.8 cm LV Stroke Volume (4C MOD) 179 ml Atria Name Value Normal LA Dimensions LA Volume (4C A-L) 96 ml LA Volume (BP A-L) 132 ml RA Dimensions RA Area (4C) 20.3 cm2 <=18.0 Report Signatures
== END 2024-05-13 12:55 | disposition home or self-care (01) ==
LOC: CHSIMG 12:55
PROVIDERS: PCP Family Medicine; Visit Provider Family Medicine
DX: I50.9 Heart failure, unspecified (principal); I34.0 Nonrheumatic mitral (valve) insufficiency
CPT/HCPCS: 93306

== ENCOUNTER 2024-06-10 14:05 | Outpatient (CLI) | payer MEDICARE, OTHER, SELFPAY ==
--- OUTSIDE RECORDS SUMMARY | 2024-06-10 14:08 | XMS_ITS | Clinical Summary ---
Author Organization [facility] Kayla Cleveland Address [address] [place] [address] Care Team Providers Care Asset Protection Detective Name Role Phone MagdiCheycolby CHADWICK Primary Care Provider [phone] Allergies No known active allergies Medications tamsulosin (FLOMAX) 0.4 mg capsule Take 0.4 mg by mouth daily. 4 Active oxyCODONE-acet aminophen (PERCOCET) 5-325 mg tablet Take 1 Tablet by mouth. 4 Active fentaNYL (DURAGESIC) 12 mcg/hr patch Apply 1 Patch to skin as directed every third day. Active ondansetron (ZOFRAN ODT) 8 mg Tablet, Rapid DissolveIndica tions:Prostate cancer (CMS/HCC) Dissolve 1 tablet on top of tongue then swallow with saliva every 8 hours as needed for nausea or vomiting 30 Tablet 1 4 Active lidocaine-pril ocaine (EMLA) 2.5-2.5 % CreamIndicatio ns:Prostate cancer (CMS/HCC) Apply a quarter size amount to port site 30 minutes prior to access. 30 Gram 1 4 Active predniSONE (DELTASONE) 5 mg tablet Take 1 Tablet (5 mg) by mouth daily except on the days dexamethasone is taken. 30 Tablet 2 4 Active zolpidem (AMBIEN) 5 mg tabletIndicati ons:Chronic anemia Take 1 Tablet (5 mg) by mouth nightly as needed for Insomnia. 30 Tablet 4 Active dexAMETHasone (DECADRON) 4 mg tabletIndicati ons:Prostate cancer (CMS/HCC) Take 1 tablet by mouth BID day before treatment, day of treatment, and day after treatment. 6 Tablet 3 4 Active Active Problems No known active problems Encounters Date Type Department Care Team Description 06/07/2024 Orders Only [facility] Oncology and Hematology - [place] Christopher Torres [address] [id number] Jadon Dominguez MD Prostate cancer ([facility]/HCC) 06/01/2024 External Device Data STL ABSTRACTION Provider, Abstract 06/01/2024 Orders Only [facility] Oncology and Hematology - [place] Christopher [address] [place] [address] Jadon Dominguez MD 05/25/2024 Orders Only [facility] Oncology and Hematology - [place] [address] [place] [address] Jadon Dominguez MD 05/24/2024 9:00 AM COMPENSATION COORDINATOR Office Visit [facility] Oncology and Hematology - [place] Christopher [address] [place] [address] Jadon Dominguez MD Congestive heart failure, unspecified HF chronicity, unspecified heart failure type ([facility]/HCC) (Primary Dx); Prostate cancer ([facility]/HCC) 05/18/2024 External Device Data STL ABSTRACTION Provider, Abstract 05/12/2024 Orders Only [facility] Oncology and Hematology - [place] Christopher [address] [place] [address] Jadon Dominguez MD 05/10/2024 Orders Only [facility] Oncology and Hematology - [place] Christopher [address] [place] [address] Jadon Dominguez MD Prostate cancer ([facility]/HCC) 05/03/2024 10:15 AM COMPENSATION COORDINATOR Office Visit [facility] Oncology and Hematology - [place] Christopher [address] [place] [address] Amaris Swan MD Prostate cancer ([facility]/HCC) (Primary Dx) 04/26/2024 Orders Only [facility] Oncology and Hematology - [place] Christopher [address] Jadon Dominguez MD Prostate cancer ([facility]/HCC) 04/14/2024 Orders Only [facility] Oncology and Hematology - [place] [address] [address] Jadon Dominguez MD 04/13/2024 Orders Only [facility] Oncology and Hematology - [place] [address] [address] Jadon Dominguez MD 04/12/2024 9:15 AM COMPENSATION COORDINATOR [facility] Oncology and Hematology - [place] [address] [address] Jadon Dominguez MD Prostate cancer ([facility] 04/12/2024 Refill [facility] Oncology and Hematology - [place] [address] [address] Jadon Dominguez MD Prostate cancer ([facility]/HCC) 03/29/2024 Orders Only [facility] Oncology and Hematology - [place] [address] [address] Jadon Dominguez MD Prostate cancer ([facility]) 03/24/2024 Orders Only [facility] Oncology and Hematology - [place] [address] Jadon Dominguez MD 03/23/2024 Orders Only [facility] Oncology and Hematology - [place] [address] Jadon Dominguez MD 03/23/2024 Refill [facility] Oncology and Hematology - [place] [address] Jadon Dominguez MD Chronic anemia (Primary Dx) 03/15/2024 Orders Only [facility] Oncology and Hematology - [place] [address] Jadon Dominguez MD Prostate cancer (CMS/HCC) from Last 3 Months Family History Medical History Relation Name Comments Prostate Cancer Brother No Known Problems Child 1 No Known Problems Child 2 No Known Problems Child 3 Heart Disease Father Leukemia Mother Diabetes Sister Relation Name Status Comments Brother Child 1 Alive Child 2 Alive Child 3 Alive Father Mother Sister Alive Social History Tobacco Use Types Packs/Day Years Used Date Smoking Tobacco: Never Smokeless Tobacco: Never Tobacco Cessation:Counseling Given: Not Answered Alcohol Use Standard Drinks/Week Comments Yes 1 (1 standard drink = 0.6 oz pure alcohol) occassionally maybe every other week Sex and Gender Information Value Date Recorded Sex Assigned at Not on file Legal Sex Male 9:07 AM CDT Gender Identity Not on file Sexual Orientation Not on file Last Filed Vital Signs Vital Sign Reading Time Taken Comments Blood Pressure 120/71 05/24/2024 9:02 AM COMPENSATION COORDINATOR Pulse 65 05/24/2024 9:02 AM COMPENSATION COORDINATOR Temperature 36.2 C (97.1 F) 05/24/2024 9:02 AM COMPENSATION COORDINATOR Respiratory Rate 16 05/24/2024 9:02 AM COMPENSATION COORDINATOR Oxygen Saturation 97% 05/24/2024 9:02 AM COMPENSATION COORDINATOR Inhaled Oxygen Concentration - - Weight 112.4 kg (247 lb 12.8 oz) 05/24/2024 9:02 AM COMPENSATION COORDINATOR Height 190.5 cm (6' 3 ) 02/13/2024 12:3 2 PM CDT Body Mass Index 30.97 02/13/2024 12:32 PM CDT Plan of Treatment Upcoming Encounters Date Type Department Care Team (Late st Contact Info) Description 06/15/2024 9:30 AM COMPENSATION COORDINATOR Office Visit [facility] Oncology and Hematology - [place] [address] [facility] [address] [place] [address] Jadon Dominguez MD [address] [facility] [address] [place] [address] Health Maintenance Due Date Last Done Comments Pre-Diabetes and Diabetes Screening 1960 DTAP/TDAP/TD VACCINES (1 - Tdap) 1977 COLORECTAL SCREENING 10/15/2003 Colorectal Cancer Screening 10/15/2003 FIT-DNA Q 3 years 10/15/2003 FIT/FOBT Q 1 year 10/15/2003 Flex Sig/CT Colonography Q 5 years 10/15/2003 PNEUMOCOCCAL VACCINE 65+ YEARS (1 of 1 - PCV) 10/15/19 09 ZOSTER VACCINE (1 of 2) 2008 INFLUENZA VACCINE (#1) 2023 RSV VACCINE (60+ or ) (1 - 1-dose 75+ series) 2033 Procedures Procedure Name Priority Date/Time Associated Diagnosis Comments PSA Routine 05/31/2024 12:51 PM COMPENSATION COORDINATOR COMPREHENSIVE METABOLIC PANEL Routine 05/24/2024 11:07 AM COMPENSATION COORDINATOR CBC WITH DIFFERENTIAL Routine 05/03/2024 3:09 PM COMPENSATION COORDINATOR COMPREHENSIVE METABOLIC PANEL Routine 05/03/2024 1:41 PM COMPENSATION COORDINATOR BASIC METABOLIC PANEL Routine 05/03/2024 1:16 PM COMPENSATION COORDINATOR COMPREHENSIVE METABOLIC PANEL Routine 04/12/2024 3:55 PM COMPENSATION COORDINATOR CBC WITH DIFFERENTIAL Routine 04/12/2024 3:52 PM COMPENSATION COORDINATOR BASIC METABOLIC PANEL Routine 04/12/2024 12:54 PM COMPENSATION COORDINATOR BASIC METABOLIC PANEL Routine 03/22/2024 4:09 PM COMPENSATION COORDINATOR CBC WITH DIFFERENTIAL Routine 03/22/2024 1:10 PM COMPENSATION COORDINATOR COMPREHENSIVE METABOLIC PANEL Routine 03/22/2024 1:05 PM COMPENSATION COORDINATOR from Last 3 Months Results * PSA (05/31/2024 12:51 PM COMPENSATION COORDINATOR) Blood us Jadon Dominguez MD CHEMISTRY ORDERABLES Final Resu lt * COMPREHENSIVE METABOLIC PANEL (05/24/2024 11:07 AM COMPENSATION COORDINATOR) Only the most recent of4 resultswithin the time period is included. Blood us Jdaon Dominguez MD CHEMISTRY ORDERABLES Final Resu lt * CBC WITH DIFFERENTIAL (05/03/2024 3:09 PM COMPENSATION COORDINATOR) Only the most recent of3 resultswithin the time period is included. Blood us Jadon Dominguez MD HEMATOLOGY ORDERABLES Final Res ult * BASIC METABOLIC PANEL (05/03/2024 1:16 PM COMPENSATION COORDINATOR) Only the most recent of3 resultswithin the time period is included. Blood Jadon Dominguez MD CHEMISTRY ORDERABLES Final Resu lt from Last 3 Months Insurance [facility] CHOICE [id number] MEDICARE PART A AND B Care Teams Asset Protection Detective Relationship Specialty Start Date End Date Heber Fairbanks DO [address] [place] [address] PCP - General Family Practice 02/13/24
--- OUTSIDE RECORDS SUMMARY | 2024-06-10 14:08 | XMS_ITS | Encounter Summary ---
Author Organization [facility] [employer] [facility] Address [address] [place] [address] Care Team Providers Care Physics Faculty Member Name Role Phone Heber Fairbanks DO Primary Care Provider [phone] Encounter Details Date Type Department Care Team ([facility] Contact Info) Description 06/07/2024 Orders Only [facility] Oncology and [facility] [address] [place] [address] Jadon Dominguez MD [facility] [employer] [address] [place] [address] Prostate cancer (CMS/HCC) Social History Tobacco Use Types Packs/Day Years Used Date Smoking Tobacco: Never Smokeless Tobacco: Never Alcohol Use Standard Drinks/Week Comments Yes 1 (1 standard drink = 0.6 oz pure alcohol) occassionally maybe every other week Sex and Gender Information Value Date Recorded Sex Assigned at Not on file Legal Sex Male 9:07 AM CDT Gender Identity Not on file Sexual Orientation Not on file documented as of this encounter Plan of Treatment Upcoming Encounters Date Type Department Care Team (Late Contact Info) Description 06/15/2024 9:30 AM CHAPERONE Office Visit [facility] Oncology and Hematology [facility] [address] [place] [address] Jadon Dominguez MD [facility] [employer] [address] [place] [address] documented as of this encounter Visit Diagnoses Diagnosis Prostate cancer (CMS/HCC) Malignant neoplasm of prostate documented in this encounter Care Teams Physics Faculty Member Relationship Specialty Start Date End Date Heber Fairbanks DO [address] [place] [address] PCP - General Family Practice 02/13/24 documented as of this encounter
[2024-06-10 15:15] LABS: Thyroid Stimulating Hormone Reflex 1.66 u/IU/mL (0.36-3.74)
== END 2024-06-10 14:06 | disposition home or self-care (01) ==
LOC: CHSLAB 14:06
PROVIDERS: PCP Family Medicine; Visit Provider Internal Medicine Cardiovascular Disease
DX: I47.20 Ventricular tachycardia, unspecified (principal)
CPT/HCPCS: 36415; 84443

== ENCOUNTER 2024-07-12 07:41 | Outpatient (CLI) | payer MEDICARE, OTHER, SELFPAY ==
--- NOTE | 2024-07-12 07:45 | EST_ITS ---
Patient Info Name: Hao Rea Age: 63 years : 1960 Gender: Male Ht: 75 in Wt: 248 lbs BSA: 2.47 m2 HR: 119 bpm BP: 114 / 54 mmHg Heart Rhythm: Tachycardia, Atrial Fibrillation Technical Quality: Good Exam Date: 07/12/2024 8:50 AM Exam Location: Echo Lab Patient Status: Outpatient Admit Date: 07/12/2024 Staff Ordering Physician: Terence Woods DO Attending Provider: Terence Woods DO Exam Type: CA stress shonda w NM Study Info A regadenoson stress test was performed. Summary 1. 1. Negative lexiscan stress test for ischemic ST changes by ECG criteria. 2. 2. Baseline atrial fibrillation with rapid ventricular response. 3. 3. Nuclear scan to follow and will be reported separately. Please correlate with it. Protocol: LEXISCAN Stress ECG Details Stage: REST Duration (min): 3 min : 1 sec HR (bpm): 121 SBP (mmHg): 114 DBP (mmHg): 54 Stage: REST Duration (min): 8 min : 53 sec HR (bpm): 118 SBP (mmHg): 114 DBP (mmHg): 54 Stage: STAGE 1 Duration (min): 0 min : 34 sec HR (bpm): 122 SBP (mmHg): 114 DBP (mmHg): 54 Stage: RECOVERY Duration (min): 0 min : 25 sec HR (bpm): 132 SBP (mmHg): 114 DBP (mmHg): 54 Stage: RECOVERY Duration (min): 1 min : 25 sec HR (bpm): 142 SBP (mmHg): 114 DBP (mmHg): 54 Stage: RECOVERY Duration (min): 2 min : 25 sec HR (bpm): 131 SBP (mmHg): 80 DBP (mmHg): 62 Stage: RECOVERY Duration (min): 3 min : 25 sec HR (bpm): 140 SBP (mmHg): 80 DBP (mmHg): 62 Stage: RECOVERY Duration (min): 4 min : 25 sec HR (bpm): 140 SBP (mmHg): 80 DBP (mmHg): 62 Stage: RECOVERY Duration (min): 5 min : 25 sec HR (bpm): 145 SBP (mmHg): 80 DBP (mmHg): 62 Stage: RECOVERY Duration (min): 6 min : 25 sec HR (bpm): 144 SBP (mmHg): 80 DBP (mmHg): 62 Stage: RECOVERY Duration (min): 7 min : 25 sec HR (bpm): 139 SBP (mmHg): 80 DBP (mmHg): 62 Stage: RECOVERY Duration (min): 8 min : 25 sec HR (bpm): 140 SBP (mmHg): 80 DBP (mmHg): 62 Stage: RECOVERY Duration (min): 8 min : 59 sec HR (bpm): --- SBP (mmHg): 80 DBP (mmHg): 62 Rest HR: 118 bpm Peak HR: 149 bpm Rest Sys BP: 114 mmHg Peak Sys BP: 80 mmHg Max Pred HR: 155 bpm % Max Pred HR: 96 % Target HR: 132 bpm Max RPP: 11,920 bpm*mmHg BP Response: Normal blood pressure response Termination Reason: Completed Protocol Cardiac Symptoms: None Total Time: 0 min : 34 sec Rest Choudhary BP: 54 mmHg Peak Choudhary BP: 62 mmHg Total Dose: 0.4 mg Resting ECG Atrial fibrillation with rapid ventricular response and PVCs, delayed precordial R/S transition. Stress ECG No abnormal ST/T wave changes. Arrhythmias Occasional PVCs. Report Signatures
--- OUTSIDE RECORDS SUMMARY | 2024-07-12 07:46 | XMS_ITS | Clinical Summary ---
Author Organization [facility] Kayla Cleveland Address [address] [place] [address] Care Team Providers Care State Fire Marshal Name Role Phone Magdi Heber CHADWICK Primary Care Provider [phone] Allergies No known active allergies Medications tamsulosin (FLOMAX) 0.4 mg capsule Take 0.4 mg by mouth daily. 01/02/20 24 Active oxyCODONE-arelis taminophen (PERCOCET) 5-325 mg tablet Take 1 Tablet by mouth. 02/10/20 24 Active fentaNYL (DURAGESIC) 12 mcg/hr patch Apply 1 Patch to skin as directed every third day. Active ondansetron (ZOFRAN ODT) 8 mg Tablet, Rapid DissolveIndic ations:Prosta te cancer ([facility]) Dissolve 1 tablet on top of tongue then swallow with saliva every 8 hours as needed for nausea or vomiting 30 Tablet 1 02/24/20 24 Active lidocaine-gail locaine (EMLA) 2.5-2.5 % CreamIndicati ons:Prostate cancer ([facility]) Apply a quarter size amount to port site 30 minutes prior to access. 30 Gram 1 02/24/20 24 Active predniSONE (DELTASONE) 5 mg tablet Take 1 Tablet (5 mg) by mouth daily except on the days dexamethasone is taken. 30 Tablet 2 02/27/20 24 Active zolpidem (AMBIEN) 5 mg tabletIndicat ions:Chronic anemia Take 1 Tablet (5 mg) by mouth nightly as needed for Insomnia. 30 Tablet 03/23/20 24 Active metoprolol succinate (TOPROL XL) 25 mg Extended Release 24 hour tablet Take 25 mg by mouth daily. 06/10/19 25 Active dexAMETHasone (DECADRON) 4 mg tabletIndicat ions:Prostate cancer (CMS/HCC) TAKE ONE TABLET BY MOUTH TWICE A DAY DAY BEFORE TREATMENT, DAY OF TREATMENT, AND DAY AFTER TREATMENT. 6 Tablet 3 06/18/19 25 Active dexAMETHasone (DECADRON) 4 mg tabletIndicat ions:Prostate cancer (CMS/HCC) Take 1 tablet by mouth BID day before treatment, day of treatment, and day after treatment. 6 Tablet 3 04/12/20 24 025 Discontinued Active Problems No known active problems Encounters Date Type Department Care Team Description 07/06/2024 Orders Only [facility] Oncology and Hematology [facility] Christopher [address] [id number] Jadon Dominguez MD 07/05/2024 Orders Only [facility] Oncology and Hematology [facility] Christopher [address] [phone] Jadon Dominguez MD Prostate cancer ([facility]/HCC) 06/21/2024 Orders Only [facility] Oncology and Hematology [facility] Christopher [address] [phone] Jadon Dominguez MD Prostate cancer ([facility]/HCC) 06/18/2024 Refill [facility] Oncology and Hematology [facility] Christopher [address] [phone] Jadon Dominguez MD Prostate cancer ([facility]/HCC) 06/15/2024 9:30 AM RN NAVIGATOR Office Visit [facility] Oncology and Hematology [facility] [address] [place] [id number] Jadon Dominguez MD Prostate cancer ([facility]/HCC) (Primary Dx) 06/15/2024 Orders Only [facility] Oncology and Hematology [facility] Christopher [address] [place] [address] Jadon Dominguez MD 06/07/2024 Orders Only [facility] Oncology and Hematology [place] Christopher [address] [phone] Jadon Dominguez MD Prostate cancer ([facility]/HCC) 06/01/2024 External Device Data STL ABSTRACTION Provider, Abstract 06/01/2024 Orders Only [facility] Oncology and Hematology - [place] Christopher [address] [address] Jadon Dominguez MD 05/25/2024 Orders Only [facility] Oncology and Hematology - [place] [address] [address] Jadon Dominguez MD 05/24/2024 9:00 AM RN NAVIGATOR Office Visit [facility] Oncology and Hematology - [place] [address] [address] Jadon Dominguez MD Congestive heart failure, unspecified HF chronicity, unspecified heart failure type ([facility]/HCC) (Primary Dx); Prostate cancer ([facility]/HCC) 05/18/2024 External Device Data STL ABSTRACTION Provider, Abstract 05/12/2024 Orders Only [facility] Oncology and Hematology - [place] Christopher [address] [address] Jadon Dominguez MD 05/10/2024 Orders Only [facility] Oncology and Hematology - [place] [address] [phone] Jadon Dominguez MD Prostate cancer ([facility]/HCC) 05/03/2024 10:15 AM RN NAVIGATOR Office Visit [facility] Oncology and Hematology - [place] [address] [phone] Amaris Swan MD Prostate cancer ([facility]/HCC) (Primary Dx) 04/26/2024 Orders Only [facility] Oncology and Hematology - [place] [address] [phone] Jadon Dominguez MD Prostate cancer ([facility]/HCC) 04/14/2024 Orders Only [facility] Oncology and Hematology - [place] [address] Jadon Dominguez MD 04/13/2024 Orders Only [facility] Oncology and Hematology - [place] [address] [phone] Jadon Dominguez MD from Last 3 Months Family History Medical [...] Sign Reading Time Taken Comments Blood Pressure 111/66 06/15/2024 9:37 AM RN NAVIGATOR Pulse 62 06/15/2024 9:37 AM RN NAVIGATOR Temperature 36.1 C (97 F) 06/15/2024 9:37 AM RN NAVIGATOR Respiratory Rate 16 06/15/2024 9:37 AM RN NAVIGATOR Oxygen Saturation 97% 06/15/2024 9:37 AM RN NAVIGATOR Inhaled Oxygen Concentration - - Weight 111.1 kg (245 lb) 06/15/2024 9:37 AM RN NAVIGATOR Height 190.5 cm (6' 3 ) 02/13/2024 12:32 PM CDT Body Mass Index 30.62 02/13/2024 12:32 PM CDT Plan of Treatment Upcoming Encounters Date Type Department Care Team (Late st Contact Info) Description 07/26/2024 2:00 PM CDT Office Visit [facility] Oncology and Hematology - [place] [address] [place] [address] Jadon Dominguez MD [address] [facility] [employer] [address] [place] [address] Health Maintenance Due Date Last Done Comments Pre-Diabetes and Diabetes Screening 1960 DTAP/TDAP/TD VACCINES (1 - Tdap) 1977 COLORECTAL SCREENING 10/15/2003 Colorectal Cancer Screening 10/15/2003 FIT-DNA Q 3 years 10/15/2003 FIT/FOBT Q 1 year 10/15/2003 Flex Sig/CT Colonography Q 5 years 10/15/2003 PNEUMOCOCCAL VACCINE 50+ YEARS (1 of 1 - PCV) 10/15/19 ZOSTER VACCINE (1 of 2) 2008 INFLUENZA VACCINE (#1) 2023 Preventative Visit- Commercial 05/05/2024 RSV VACCINE (60+ or ) (1 - 1-dose 75+ series) 2033 Procedures Procedure Name Priority Date/Time Associated Diagnosis Comments COMPREHENSIVE METABOLIC PANEL Routine 07/05/2024 10:56 AM RN NAVIGATOR CBC WITH DIFFERENTIAL Routine 06/15/2024 10:22 AM RN NAVIGATOR PSA Routine 05/31/2024 12:51 PM RN NAVIGATOR COMPREHENSIVE METABOLIC PANEL Routine 05/24/2024 11:07 AM RN NAVIGATOR CBC WITH DIFFERENTIAL Routine 05/03/2024 3:09 PM RN NAVIGATOR COMPREHENSIVE METABOLIC PANEL Routine 05/03/2024 1:41 PM RN NAVIGATOR BASIC METABOLIC PANEL Routine 05/03/2024 1:16 PM RN NAVIGATOR from Last 3 Months Results * COMPREHENSIVE METABOLIC PANEL (07/05/2024 10:56 AM RN NAVIGATOR) Only the most recent of3 resultswithin the time period is included. Blood us Jadon Dominguez MD CHEMISTRY ORDERABLES Final Resu lt * CBC WITH DIFFERENTIAL (06/15/2024 10:22 AM RN NAVIGATOR) Only the most recent of2 resultswithin the time period is included. Blood us Jadon Dominguez MD HEMATOLOGY ORDERABLES Final Res ult * PSA (05/31/2024 12:51 PM RN NAVIGATOR) Blood us aJdon Dominguez MD CHEMISTRY ORDERABLES Final Resu lt * BASIC METABOLIC PANEL (05/03/2024 1:16 PM RN NAVIGATOR) Blood Jadon Dominguez MD CHEMISTRY ORDERABLES Final Resu lt from Last 3 Months Insurance [facility] CHOICE [id number] MEDICARE PART A AND B Care Teams State Fire Marshal Relationship Specialty Start Date End Date Heber Fairbanks DO [address] [place] [address] PCP - General Family Practice 02/13/24
--- NOTE | 2024-07-12 12:57 | WPDCARIOSTRE ---
Nuclear Stress Test INDICATIONS Indications: Ventricular tachycardia PROCEDURE Procedure Performed: Myocardial Perf Spect-Multi Procedure: Patient underwent a lexiscan stress test and immediately was injected with 31.8 mCi of cardiolyte. Multiple tomographic images were obtained. These are of good quality. There is evidence of a large size, severe inferior and inferoapical perfusion defect with stress imaging. A separate resting images were obtained after patient was injected with 10.5 mCi of cardiolyte. Multiple tomographic images were obtained. These are of good quality. There is evidence of a large size, severe inferior and inferoapical perfusion defect with rest imaging. CONCLUSION Conclusion: 1. Myocardial perfusion imaging demonstrating a fixed large size inferior and inferoapical perfusion defects suggestive diaphragmatic attenuation artifact. 2. No evidence of reversible ischemia. 3. Left ventriculogram demonstrates normal measured ejection fraction of 58% with no wall motion abnormalities. 4. TID score 0.95 is normal.
== END 2024-07-12 07:42 | disposition home or self-care (01) ==
LOC: CHSIMG 07:43
PROVIDERS: PCP Family Medicine; Visit Provider Internal Medicine Cardiovascular Disease
DX: I47.20 Ventricular tachycardia, unspecified (principal)
CPT/HCPCS: 78452; 93017; A9502; J2785

== ENCOUNTER 2024-07-19 12:56 | Outpatient (CLI) | payer OTHER, MEDICARE, SELFPAY ==
--- NOTE | 2024-07-19 12:58 | ECG_ITS ---
Test Date: 2024-07-19 13:10:37 Measurements Intervals [place] Rate: 90 P: 0 MN: 0 QRS: 75 QRSD: 102 T: 44 QT: 382 QTc: 468 Interpretive Statements ATRIAL FIBRILLATION Compared to ECG 04/21/2024 12:10:51 Sinus rhythm no longer present Electronically Signed On 07-20-2024 16:21:46 CDT by Sterling Reyes M.D.
--- OUTSIDE RECORDS SUMMARY | 2024-07-19 15:22 | XMS_ITS | Encounter Summary ---
Author Organization [facility] [employer] [facility] Address [address] [place] [address] Care Team Providers Care Cello Teacher Name Role Phone Heber Fairbanks DO Primary Care Provider [phone] Encounter Details Date Type Department Care Team ([facility] Contact Info) Description 07/19/2024 Orders Only [facility] Oncology and [facility] [address] [place] [address] Jadon Dominguez MD [address] [place] [address] [employer] [address] [place] [phone] Prostate cancer (CMS/HCC) Social History Tobacco [...] Department Care Team (Late Contact Info) Description 07/26/2024 2:00 PM CDT Office Visit [facility] Oncology and Hematology [facility] Marguerite [address] [place] [address] Jadon Dominguez MD [facility] [employer] [address] [place] [phone] documented as of this encounter Visit Diagnoses Diagnosis Prostate cancer (CMS/HCC) Malignant neoplasm of prostate documented in this encounter Care Teams Cello Teacher Relationship Specialty Start Date End Date Heber Fairbanks DO [address] [place] [address] PCP - General Family Practice 02/13/24 documented as of this encounter
--- OUTSIDE RECORDS SUMMARY | 2024-07-19 15:22 | XMS_ITS | Clinical Summary ---
Author Organization [facility] Kayla Cleveland Address [address] [place] [address] Care Team Providers Care Event Promotions Coordinator Name Role Phone Magdi Heber CHADWICK Primary Care Provider [phone] Allergies No known active allergies Medications tamsulosin [...] needed for Insomnia. 30 Tablet 4 Active metoprolol succinate (TOPROL XL) 25 mg Extended Release 24 hour tablet Take 25 mg by mouth daily. 5 Active dexAMETHasone (DECADRON) 4 mg tabletIndicati ons:Prostate cancer (CMS/HCC) TAKE ONE TABLET BY MOUTH TWICE A DAY DAY BEFORE TREATMENT, DAY OF TREATMENT, AND DAY AFTER TREATMENT. 6 Tablet 3 5 Active Active Problems No known active problems Encounters Date Type Department Care Team Description 07/19/2024 Orders Only [facility] Oncology and Hematology [facility] [address] [place] [address] Jadon Dominguez MD Prostate cancer ([facility]/HCC) 07/06/2024 Orders Only [facility] Oncology and Hematology - [place] Christopher [address] [place] [address] Jadon Dominguez MD 07/05/2024 Orders Only [facility] Oncology and Hematology [facility] [address]uer[address] Jadon Dominguez MD Prostate cancer ([facility]/HCC) 06/21/2024 Orders Only [facility] Oncology and Hematology [facility] [address]uer[address] Jadon Dominguez MD Prostate cancer ([facility]/HCC) 06/18/2024 Refill [facility] Oncology and Hematology [facility] [address] Jadon Dominguez MD Prostate cancer ([facility]/HCC) 06/15/2024 9:30 AM AERIAL PHOTOGRAPHER Office Visit [facility] Oncology and Hematology [facility] [address] [place] [phone] Jadon Dominguez MD Prostate cancer ([facility]/HCC) (Primary Dx) 06/15/2024 Orders Only [facility] Oncology and Hematology [facility] [address] [place] [phone] Jadon Dominguez MD 06/07/2024 Orders Only [facility] Oncology and Hematology [place] Christopher [address] [place] [address] Jadon Dominguez MD Prostate cancer ([facility]/HCC) 06/01/2024 External Device Data STL ABSTRACTION Provider, Abstract 06/01/2024 Orders Only [facility] Oncology and Hematology - [place] Christopher [address] [place] [address] Jadon Dominguez MD 05/25/2024 Orders Only [facility] Oncology and Hematology - [place] [address] [place] [address] Jadon Dominguez MD 05/24/2024 9:00 AM AERIAL PHOTOGRAPHER Office Visit [facility] Oncology and Hematology - [place] [address] [place] [address] Jadon Dominguez MD Congestive heart failure, unspecified HF chronicity, unspecified heart failure type ([facility]/HCC) (Primary Dx); Prostate cancer ([facility]/HCC) 05/18/2024 External Device Data STL ABSTRACTION Provider, Abstract 05/12/2024 Orders Only [facility] Oncology and Hematology - [place] Christopher [address] [place] [phone] Jadon Dominguez MD 05/10/2024 Orders Only [facility] Oncology and Hematology - [place] [address] [place] [phone] Jadon Dominguez MD Prostate cancer ([facility]/HCC) 05/03/2024 10:15 AM AERIAL PHOTOGRAPHER Office Visit [facility] Oncology and Hematology - [place] [address] [place] [phone] Amaris Swan MD Prostate cancer ([facility]/HCC) (Primary Dx) 04/26/2024 Orders Only [facility] Oncology and Hematology - [place] [address] [place] [phone] Jadon Dominguez MD Prostate cancer ([facility]/HCC) from Last 3 Months Family History Medical [...] Comments Blood Pressure 111/66 06/15/2024 9:37 AM AERIAL PHOTOGRAPHER Pulse 62 06/15/2024 9:37 AM AERIAL PHOTOGRAPHER Temperature 36.1 C (97 F) 06/15/2024 9:37 AM AERIAL PHOTOGRAPHER Respiratory Rate 16 06/15/2024 9:37 AM AERIAL PHOTOGRAPHER Oxygen Saturation 97% 06/15/2024 9:37 AM AERIAL PHOTOGRAPHER Inhaled Oxygen Concentration - - Weight 111.1 kg (245 lb) 06/15/2024 9:37 AM AERIAL PHOTOGRAPHER Height 190.5 cm (6' 3 ) 02/13/2024 12:32 PM CDT Body Mass Index 30.62 02/13/2024 12:32 PM CDT Plan of Treatment Upcoming Encounters Date Type Department Care Team (Late st Contact Info) Description 07/26/2024 2:00 PM CDT Office Visit [facility] Oncology and Hematology - [place] [address] [facility] [address] [place] [address] Jadon Dominguez MD [address] [facility] [address] [place] [address] Health Maintenance Due Date Last [...] COMPREHENSIVE METABOLIC PANEL Routine 07/05/2024 10:56 AM AERIAL PHOTOGRAPHER CBC WITH DIFFERENTIAL Routine 06/15/2024 10:22 AM AERIAL PHOTOGRAPHER PSA Routine 05/31/2024 12:51 PM AERIAL PHOTOGRAPHER COMPREHENSIVE METABOLIC PANEL Routine 05/24/2024 11:07 AM AERIAL PHOTOGRAPHER CBC WITH DIFFERENTIAL Routine 05/03/2024 3:09 PM AERIAL PHOTOGRAPHER COMPREHENSIVE METABOLIC PANEL Routine 05/03/2024 1:41 PM AERIAL PHOTOGRAPHER BASIC METABOLIC PANEL Routine 05/03/2024 1:16 PM AERIAL PHOTOGRAPHER from Last 3 Months Results * COMPREHENSIVE METABOLIC PANEL (07/05/2024 10:56 AM AERIAL PHOTOGRAPHER) Only the most recent of3 resultswithin the time period is included. Blood us Jadon Dominguez MD CHEMISTRY ORDERABLES Final Resu lt * CBC WITH DIFFERENTIAL (06/15/2024 10:22 AM AERIAL PHOTOGRAPHER) Only the most recent of2 resultswithin the time period is included. Blood us Jadon Dominguez MD HEMATOLOGY ORDERABLES Final Res ult * PSA (05/31/2024 12:51 PM AERIAL PHOTOGRAPHER) Blood us Jadon Dominguez MD CHEMISTRY ORDERABLES Final Resu lt * BASIC METABOLIC PANEL (05/03/2024 1:16 PM AERIAL PHOTOGRAPHER) Blood us Jadon Dominguez MD CHEMISTRY ORDERABLES Final Resu lt from Last 3 Months Insurance [facility] CHOICE [id number] MEDICARE PART A AND B Care Teams Event Promotions Coordinator Relationship Specialty Start Date End Date Heber Fairbanks DO [address] [place] [address] PCP - General Family Practice 02/13/24
== END 2024-07-19 12:57 | disposition home or self-care (01) ==
PROVIDERS: PCP Family Medicine; Visit Provider Internal Medicine Cardiovascular Disease
DX: I47.20 Ventricular tachycardia, unspecified (principal)
CPT/HCPCS: 93005

== ENCOUNTER 2024-08-06 12:53 | Outpatient (CLI) | payer OTHER, MEDICARE, SELFPAY ==
--- NOTE | ~2024-08-06 | DEXA_ITS ---
Bone Density Report Name: MERA AMAYA Age: 63 Sex: Male Ethnicity: White Date of : 1960 Indication: height loss; cancer; Referring Provider: NEGAR COLEY Study: Bone densitometry was performed. Exam Date: August 06, 2024 Accession number: [id number] Bone Density: Region BMD T-score Z-score Classification AP Spine(L1, L2, L4) 1.570 4.4 5.2 Normal Femoral Neck (Left) 0.854 -0.6 0.5 Normal Total Hip (Left) 1.021 -0.1 0.4 Normal Femoral Neck (Right) 1.268 2.5 3.5 Normal Total Hip (Right) 1.822 5.2 5.8 Normal Femoral Neck Mean 1.061 1.0 2.0 Normal Total Hip Mean 1.422 2.6 3.1 Normal World Health Organization criteria for BMD impression classify patients as: Normal (T-score at or above -1.0), Osteopenia (T-score between -1.0 and -2.5), or Osteoporosis (T-score at or below -2.5). 10-year Fracture Risk: FRAX not reported because: All T-scores for Spine Total, Hip Total, Femoral Neck at or above -1.0 Clinical Information Provided by Patient: Has used the following medications: Prolia (i.e. denosumab), Calcium Has the following medical conditions: Cancer Patient maximum height was 76 Drinks caffeinated beverages Impression: The patient has normal bone mass. Discussion: BONE DENSITY IS ABOVE THE MINIMUM DESIRABLE LEVEL AT ALL SKELETAL SITES TESTED. This patient?s bone mineral density is above the minimum desirable level (T-score -1.0 or better) at all sites measured. The patient should follow a healthful lifestyle (good nutrition with adequate calcium and vitamin D, and appropriate weight-bearing exercise). Follow-Up: Consider repeating this study in 5 years or sooner if there is some new clinical indication. Reported by: ALVARADO on 08/06/2024 1:20:00 PM. Reviewed, dictated and finalized at location A.
--- OUTSIDE RECORDS SUMMARY | 2024-08-06 12:58 | XMS_ITS | Encounter Summary ---
Author Organization [facility] [employer] [facility] Address [address] [place] [address] Care Team Providers Care Manager Configuration Name Role Phone Heber Fairbanks DO Primary Care Provider [phone] Encounter Details Date Type Department Care Team ([facility] Contact Info) Description 08/02/2024 Orders Only [facility] Oncology and [facility] [address] [place] [address] Jadon Dominguez MD [address] [place] [address] [employer] [address] [place] [phone] Prostate cancer (CMS/HCC) Social History Tobacco [...] Department Care Team (Late Contact Info) Description 09/06/2024 11:00 AM CDT Office Visit [facility] Oncology and Hematology [facility] [address] [place] [address] Jadon Dominguez MD [facility] [employer] [address] [place] [phone] documented as of this encounter Visit Diagnoses Diagnosis Prostate cancer (CMS/HCC) Malignant neoplasm of prostate documented in this encounter Care Teams Manager Configuration Relationship Specialty Start Date End Date Heber Fairbanks DO [address] [place] [address] PCP - General Family Practice 02/13/24 documented as of this encounter
--- OUTSIDE RECORDS SUMMARY | 2024-08-06 12:58 | XMS_ITS | Clinical Summary ---
Author Organization [facility] Kayla Cleveland Address [address] [place] [address] Care Team Providers Care Combine Mechanic Name Role Phone MagdiCheycolby CHADWICK Primary Care Provider [phone] Allergies No known active allergies Medications tamsulosin [...] tablet Take 25 mg by mouth daily. Take 1/2 tablet 5 Active dexAMETHasone (DECADRON) 4 mg tabletIndicati ons:Prostate cancer (CMS/HCC) TAKE ONE TABLET BY MOUTH TWICE A DAY DAY BEFORE TREATMENT, DAY OF TREATMENT, AND DAY AFTER TREATMENT. 6 Tablet 3 5 Active amiodarone (CORDARONE) 200 mg tablet Take 200 mg by mouth daily. 5 Active Active Problems No known active problems Encounters Date Type Department Care Team Description 08/02/2024 Orders Only [facility] Oncology and Hematology [facility] [address] [place] [phone] Jadon Dominguez MD Pro[facility] ([facility]) 07/27/2024 Orders Only [facility] Oncology and Hematology [facility] [address] [place] [phone] Jadon Dominguez MD 07/26/2024 2:00 PM CDT Office Visit [facility] Oncology and Hematology [facility] [address]uer[address] [place] [phone] Jadon Dominguez MD Prostate cancer ([facility]) (Primary Dx) 07/19/2024 Orders Only [facility] Oncology and Hematology [facility] [address] [place] [phone] Jadon Dominguez MD Prostate cancer ([facility]) 07/06/2024 Orders Only [facility] Oncology and Hematology - [place] [address] [place] [phone] Jadon Dominguez MD 07/05/2024 Orders Only [facility] Oncology and Hematology - [place] [address] [place] [address] Jadon Dominguez MD Prostate cancer ([facility]) 06/21/2024 Orders Only [facility] Oncology and Hematology - [place] [address] [place] [address] Jadon Dominguez MD Prostate cancer ([facility]) 06/18/2024 Refill [facility] Oncology and Hematology - [place] [address] [place] [phone] Jadon Dominguez MD Prostate cancer ([facility]) 06/15/2024 9:30 AM QUANTITATIVE MANAGER Office Visit [facility] Oncology and Hematology - [place] [address] [place] [phone] Jadon Dominguez MD Prostate cancer ([facility]) (Primary Dx) 06/15/2024 Orders Only [facility] Oncology and Hematology - [place] [address] [place] [phone] Jadon Dominguez MD 06/07/2024 Orders Only [facility] Oncology and Hematology - [place] [address] [place] [phone] Jadon Dominguez MD Prostate cancer ([facility]) 06/01/2024 External Device Data STL ABSTRACTION Provider, Abstract 06/01/2024 Orders Only [facility] Oncology and Hematology - [place] [address] [place] [address] Jadon Dominguez MD 05/25/2024 Orders Only [facility] Oncology and Hematology - [place] [address] [place] [phone] Jadon Dominguez MD 05/24/2024 9:00 AM QUANTITATIVE MANAGER Office Visit [facility] Oncology and Hematology - [place] [address] [place] [address] Jadon Dominguez MD Congestive heart failure, unspecified HF chronicity, unspecified heart failure type ([facility]) (Primary Dx); Prostate cancer ([facility]) 05/18/2024 External Device Data STL ABSTRACTION Provider, Abstract 05/12/2024 Orders Only [facility] Oncology and Hematology - [place] [address] [place] [address] Jadon Dominguez MD 05/10/2024 Orders Only [facility] Oncology and Hematology - [place] [address] [place] [address] Jadon Dominguez MD Prostate cancer (CMS/HCC) from [...] Sign Reading Time Taken Comments Blood Pressure 103/73 07/26/2024 1:52 PM CDT Pulse 90 07/26/2024 1:52 PM CDT Temperature 36.2 C (97.1 F) 07/26/2024 1:52 PM CDT Respiratory Rate 15 07/26/2024 1:52 PM CDT Oxygen Saturation 95% 07/26/2024 1:52 PM CDT Inhaled Oxygen Concentration - - Weight 114 kg (251 lb 6.4 oz) 07/26/2024 1:52 PM CDT Height 190.5 cm (6' 3 ) 02/13/2024 12:32 PM CDT Body Mass Index 31.42 02/13/2024 12:32 PM CDT Plan of Treatment Upcoming Encounters Date Type Department Care Team (Late st Contact Info) Description 09/06/2024 11:00 AM CDT Office Visit [facility] Oncology and Hematology - [place] [address] [place] [address] Jadon Dominguez MD [address] [facility] [address] [place] [address] Health Maintenance Due Date Last [...] Associated Diagnosis Comments COMPREHENSIVE METABOLIC PANEL Routine 07/26/2024 2:51 PM CDT BASIC METABOLIC PANEL Routine 07/26/2024 11:46 AM CDT CBC WITH DIFFERENTIAL Routine 07/26/2024 11:43 AM CDT COMPREHENSIVE METABOLIC PANEL Routine 07/05/2024 10:56 AM QUANTITATIVE MANAGER CBC WITH DIFFERENTIAL Routine 06/15/2024 10:22 AM QUANTITATIVE MANAGER PSA Routine 05/31/2024 12:51 PM QUANTITATIVE MANAGER COMPREHENSIVE METABOLIC PANEL Routine 05/24/2024 11:07 AM QUANTITATIVE MANAGER from Last 3 Months Results * COMPREHENSIVE METABOLIC PANEL (07/26/2024 2:51 PM CDT) Only the most recent of3 resultswithin the time period is included. Blood us Jadon Dominguez MD CHEMISTRY ORDERABLES Final Resu lt * BASIC METABOLIC PANEL (07/26/2024 11:46 AM CDT) Blood us Jadon Dominguez MD CHEMISTRY ORDERABLES Final Resu lt * CBC WITH DIFFERENTIAL (07/26/2024 11:43 AM CDT) Only the most recent of2 resultswithin the time period is included. Blood us Jadon Dominguez MD HEMATOLOGY ORDERABLES Final Res ult * PSA (05/31/2024 12:51 PM QUANTITATIVE MANAGER) Blood us Jadon Dominguez MD CHEMISTRY ORDERABLES Final Resu lt from Last 3 Months Insurance [facility] CHOICE [id number] MEDICARE PART A AND B Care Teams Combine Mechanic Relationship Specialty Start Date End Date Heber Fairbanks DO [address] [place] [address] PCP - General Family Practice 02/13/24
== END 2024-08-06 12:54 | disposition home or self-care (01) ==
PROVIDERS: PCP Family Medicine; Visit Provider Urology
DX: C61 Malignant neoplasm of prostate (principal)
CPT/HCPCS: 77080

== ENCOUNTER 2024-08-19 13:25 | Outpatient (CLI) | payer OTHER, MEDICARE, SELFPAY ==
--- NOTE | ~2024-08-19 | CT_ITS ---
Non-contrast CT scan of the Abdomen and Pelvis Clinical indication: Prostate cancer Technique: 2.5 mm axial scans were obtained through the abdomen and pelvis without intravenous or or al contrast. Dose reduction technique was used on this scan by utilizing automated exposure control a nd iterative reconstruction technique. The dose-length product (DLP) was 937.32 mGy-cm. Findings: Images through the lung bases reveal no abnormalities. There is no evidence of renal or ureteral calculi. The kidneys and the ureters are nondilated. The liver, spleen, pancreas, gallbladder, and adrenals appear normal. There is no aortic aneurysm. There is no evidence of bowel obstruction. Previously noted retroperitoneal and pelvic lymphadenopath y is essentially resolved. Images through the pelvis were performed. There is no evidence of ascites. Urinary bladder unremarkab le. Prostate gland enlarged. There is extensive osteoblastic metastatic disease throughout the visualized skeleton. Impression: Diffuse osteoblastic metastatic disease. Previously noted lymphadenopathy is essentially completely resolved. Enlarged prostate gland. Reviewed, dictated and finalized at [facility]. Impression: Diffuse osteoblastic metastatic disease. Previously noted lymphadenopathy is essentially completely resolved. Enlarged prostate gland.
--- OUTSIDE RECORDS SUMMARY | 2024-08-19 13:43 | XMS_ITS | Clinical Summary ---
Author Organization [facility] Kayla Cleveland Address [address] [place] [address] Care Team Providers Care Farmworker Dairy Name Role Phone aMgdi Heber CHADWICK Primary Care Provider [phone] Allergies No known active allergies Medications tamsulosin [...] Encounters Date Type Department Care Team Description 08/16/2024 Orders Only [facility] Oncology and Hematology - [place] [address] [place] [phone] Jadon Dominguez MD Prostate cancer ([facility]/HCC) 08/02/2024 Orders Only [facility] Oncology and Hematology - [place] [address] [place] [phone] Jadon Dominguez MD Prostate cancer ([facility]/HCC) 07/27/2024 Orders Only [facility] Oncology and Hematology - [place] [address] [place] [phone] Jadon Dominguez MD 07/26/2024 2:00 PM CDT Office Visit [facility] Oncology and Hematology [facility] Christopher [address] [place] [phone] Jadon Dominguez MD Prostate cancer ([facility]/HCC) (Primary Dx) 07/19/2024 Orders Only [facility] Oncology and Hematology - [place] [address] [place] [phone] Jadon Dominguez MD Prostate cancer ([facility]CC) 07/06/2024 Orders Only [facility] Oncology and Hematology - [place] [address] [place] [address] Jadon Dominguez MD 07/05/2024 Orders Only [facility] Oncology and Hematology - [place] [address] [place] [address] Jadon Dominguez MD Prostate cancer ([facility]/HCC) 06/21/2024 Orders Only [facility] Oncology and Hematology - [place]iang [address] [place] [phone] Jadon Dominguez MD Prostate cancer ([facility]) 06/18/2024 Refill [facility] Oncology and Hematology - [place] [address]uer[address] Jadon Dominguez MD Prostate cancer ([facility]/HCC) 06/15/2024 9:30 AM PHARMACEUTICAL OFFICER Office Visit [facility] Oncology and Hematology [facility] Marguer[address] [place] [phone] Jadon Dominguez MD Prostate cancer ([facility]) (Primary Dx) 06/15/2024 Orders Only [facility] Oncology and Hematology [facility] Christopher [address] [place] [phone] Jadon Dominguez MD 06/07/2024 Orders Only [facility] Oncology and Hematology [facility] [address]uer[address] Jadon Dominguez MD Prostate cancer ([facility]) 06/01/2024 External Device Data STL ABSTRACTION Provider, Abstract 06/01/2024 Orders Only [facility] Oncology and Hematology [facility] [address] [place] [address] Jadon Dominguez MD 05/25/2024 Orders Only [facility] Oncology and Hematology [place]iang [address] [place] [address] Jadon Dominguez MD 05/24/2024 9:00 AM PHARMACEUTICAL OFFICER Office Visit [facility] Oncology and Hematology [facility] [address] [place] [address] Jadon Dominguez MD Congestive heart failure, unspecified HF chronicity, unspecified heart failure type ([facility]/HCC) (Primary Dx); Prostate cancer ([facility]/HCC) from Last 3 Months Family History Medical [...] Description 09/06/2024 11:00 AM CDT Office Visit [facility] Oncology and Hematology - [place] [address] [facility] [address] [place] [address] Jadon Dominguez MD [address] [facility] [address] [place] [address] Health Maintenance Due Date Last [...] Procedure Name Priority Date/Time Associated Diagnosis Comments BASIC METABOLIC PANEL Routine 08/16/2024 3:53 PM CDT COMPREHENSIVE METABOLIC PANEL Routine 08/16/2024 3:30 PM CDT COMPREHENSIVE METABOLIC PANEL Routine 07/26/2024 2:51 PM CDT BASIC METABOLIC PANEL Routine 07/26/2024 11:46 AM CDT CBC WITH DIFFERENTIAL Routine 07/26/2024 11:43 AM CDT COMPREHENSIVE METABOLIC PANEL Routine 07/05/2024 10:56 AM PHARMACEUTICAL OFFICER CBC WITH DIFFERENTIAL Routine 06/15/2024 10:22 AM PHARMACEUTICAL OFFICER PSA Routine 05/31/2024 12:51 PM PHARMACEUTICAL OFFICER COMPREHENSIVE METABOLIC PANEL Routine 05/24/2024 11:07 AM PHARMACEUTICAL OFFICER from Last 3 Months Results * BASIC METABOLIC PANEL (08/16/2024 3:53 PM CDT) Only the most recent of2 resultswithin the time period is included. Blood us Jadon Dominguez MD CHEMISTRY ORDERABLES Final Resu lt * COMPREHENSIVE METABOLIC PANEL (08/16/2024 3:30 PM CDT) Only the most recent of4 resultswithin the time period is included. Blood us Jadon Dominguez MD CHEMISTRY ORDERABLES Final Resu lt * CBC WITH DIFFERENTIAL (07/26/2024 11:43 AM CDT) Only the most recent of2 resultswithin the time period is included. Blood us Jadon Dominguez MD HEMATOLOGY ORDERABLES Final Res ult * PSA (05/31/2024 12:51 PM PHARMACEUTICAL OFFICER) Blood us Jadon Dominguez MD CHEMISTRY ORDERABLES Final Resu lt from Last 3 Months Insurance [facility] CHOICE [id number] MEDICARE PART A AND B Care Teams Farmworker Dairy Relationship Specialty Start Date End Date Heber Fairbanks DO [address] [place] [address] PCP - General Family Practice 02/13/24
--- OUTSIDE RECORDS SUMMARY | 2024-08-19 13:43 | XMS_ITS | Encounter Summary ---
Author Organization [facility] [employer] [facility] Address [address] [place] [address] Care Team Providers Care Hydraulic Lift Operator Name Role Phone Heber Fairbanks DO Primary Care Provider [phone] Encounter Details Date Type Department Care Team ([facility] Contact Info) Description 08/16/2024 Orders Only [facility] Oncology and Hematology [facility] [address] [place] [address] Jadon Dominguez MD [address] [place] [address] [employer] [address] [place] [address] Prostate cancer (CMS/HCC) Social History Tobacco [...] Description 09/06/2024 11:00 AM CDT Office Visit [facility] Oncology and Hematology [facility] [address] [place] [address] Jadon Dominguez MD [facility] [email or web address] [address] [place] [address] documented as of this encounter Procedures Procedure Name Priority Date/Time Associated Diagnosis Comments BASIC METABOLIC PANEL Routine 08/16/2024 3:53 PM CDT COMPREHENSIVE METABOLIC PANEL Routine 08/16/2024 3:30 PM CDT documented in this encounter Results * BASIC METABOLIC PANEL (08/16/2024 3:53 PM CDT) Blood us Jadon Dominguez MD CHEMISTRY ORDERABLES Final Resu lt * COMPREHENSIVE METABOLIC PANEL (08/16/2024 3:30 PM CDT) Blood us Jadon Dominguez MD CHEMISTRY ORDERABLES Final Resu lt documented in this encounter Visit Diagnoses Diagnosis Prostate cancer (CMS/HCC) Malignant neoplasm of prostate documented in this encounter Care Teams Hydraulic Lift Operator Relationship Specialty Start Date End Date Heber Fairbanks DO [address] [place] [address] PCP - General Family Practice 02/13/24 documented as of this encounter
--- NOTE | 2024-08-19 13:44 | ECG_ITS ---
Test Date: 2024-08-19 14:07:15 Measurements Intervals [place] Rate: 57 P: 67 MI: 185 QRS: 85 QRSD: 102 T: 64 QT: 478 QTc: 466 Interpretive Statements SINUS BRADYCARDIA BASELINE WANDER- II, III BORDERLINE ECG Compared to ECG 07/19/2024 13:10:37 Atrial fibrillation no longer present Electronically Signed On 08-19-2024 14:11:39 CDT by Terence Woods D.O.
[2024-08-19 13:55] LABS: Estimated Glomerular Filt Rate > 60
[2024-08-19 14:25] LABS: NT Pro B Type Natriuretic Pept 215 pg/mL (0-125)
== END 2024-08-19 13:26 | disposition home or self-care (01) ==
PROVIDERS: Internal Medicine Cardiovascular Disease; PCP Family Medicine; Visit Provider Urology
DX: C61 Malignant neoplasm of prostate (principal); C79.51 Secondary malignant neoplasm of bone; N40.0 Benign prostatic hyperplasia without lower urinary tract symptoms; R00.1 Bradycardia, unspecified
CPT/HCPCS: 36415; 74176; 83880; 93005

== ENCOUNTER 2024-09-30 16:43 | Outpatient (CLI) | payer OTHER, MEDICARE, SELFPAY ==
--- OUTSIDE RECORDS SUMMARY | 2024-09-30 16:47 | XMS_ITS | Clinical Summary ---
Author Organization [facility] Kayla Cleveland Address [address] [place] [address] Care Team Providers Care Coastal And Estuary Specialist Name Role Phone Magdi Heber CHADWICK Primary Care Provider [phone] Allergies No known active allergies Medications tamsulosin (FLOMAX) 0.4 mg capsule Take 0.4 mg by mouth daily. 01/02/20 24 Active oxyCODONE-arelis taminophen (PERCOCET) 5-325 mg tablet Take 1 Tablet by mouth. 02/10/20 24 Active fentaNYL (DURAGESIC) 12 mcg/hr patch Apply 1 Patch to skin as directed every third day. Active ondansetron (ZOFRAN ODT) 8 mg Tablet, Rapid DissolveIndic ations:Prosta te cancer ([facility]) Dissolve 1 tablet on top of tongue then swallow with saliva every 8 hours as needed for nausea or vomiting 30 Tablet 1 02/24/20 24 Active lidocaine-gail locaine (EMLA) 2.5-2.5 % CreamIndicati ons:Prostate cancer ([facility]) Apply a quarter size amount to port [...] mg by mouth daily. Take 1/2 tablet 06/10/19 25 Active amiodarone (CORDARONE) 200 mg tablet Take 200 mg by mouth daily. 07/13/19 25 Active dexAMETHasone (DECADRON) 4 mg tabletIndicat ions:Prostate cancer (CMS/HCC) TAKE ONE TABLET BY MOUTH TWICE A DAY DAY BEFORE TREATMENT, DAY OF TREATMENT, AND DAY AFTER TREATMENT. 6 Tablet 1 09/15/19 25 Active dexAMETHasone (DECADRON) 4 mg tabletIndicat ions:Prostate cancer (CMS/HCC) TAKE ONE TABLET BY MOUTH TWICE A DAY DAY BEFORE TREATMENT, DAY OF TREATMENT, AND DAY AFTER TREATMENT. 6 Tablet 3 06/18/19 25 025 Discontinued Active Problems No known active problems Encounters Date Type Department Care Team Description 09/27/2024 Orders Only [facility] Oncology and Hematology - [place] [address] [place] [address] Jadon Dominguez MD Prostate cancer ([facility]/HCC) 09/14/2024 Orders Only [facility] Oncology and Hematology - [place] [address] [place] [phone] Jadon Dominguez MD 09/13/2024 Orders Only [facility] Oncology and Hematology - [place] [address] [place] [phone] Jadon Dominguez MD Prostate cancer ([facility]/HCC) 09/09/2024 Refill [facility] Oncology and Hematology - [place] [address] [place] [address] Jadon Dominguez MD Prostate cancer ([facility]/HCC) 09/07/2024 Orders Only [facility] Oncology and Hematology - [place] [address] [place] [address] Jadon Dominguez MD 09/06/2024 11:00 AM CDT Office Visit [facility] Oncology and Hematology - [place] [address] [place] [address] Jadon Dominguez MD Prostate cancer ([facility]/HCC) (Primary Dx) 09/06/2024 Orders Only [facility] Oncology and Hematology - [place] [address] [place] [address] Jadon Dominguez MD Chronic anemia (Primary Dx) 08/30/2024 Orders Only [facility] Oncology and Hematology - [place] [address] [place] [address] Jadon Dominguez MD Prostate cancer ([facility]/HCC) 08/16/2024 Orders Only [facility] Oncology and Hematology - [place] [address] [place] [address] Jadon Dominguez MD Prostate cancer ([facility]/HCC) 08/02/2024 Orders Only [facility] Oncology and Hematology - [place] [address] [place] [address] Jadon Dominguez MD Prostate cancer ([facility]/HCC) 07/27/2024 Orders Only [facility] Oncology and Hematology - [place] [address] [place] [address] Jadon Dominguez MD 07/26/2024 2:00 PM CDT Office Visit [facility] Oncology and Hematology - [place] [address] [place] [address] Jadon Dominguez MD Prostate cancer ([facility]/HCC) (Primary Dx) 07/19/2024 Orders Only [facility] Oncology and Hematology - [place] [address] [place] [address] Jadon Dominguez MD Prostate cancer ([facility]/HCC) 07/06/2024 Orders Only [facility] Oncology and Hematology - [place] [address] [place] [address] Jadon Dominguez MD 07/05/2024 Orders Only [facility] Oncology and Hematology - [place] [address] [place] [phone] Jadon Dominguez MD Prostate cancer (CMS/HCC) from [...] Sign Reading Time Taken Comments Blood Pressure 108/65 09/06/2024 10:51 AM CDT Pulse 61 09/06/2024 10:51 AM CDT Temperature 36.4 C (97.6 F) 09/06/2024 10:51 AM CDT Respiratory Rate 15 09/06/2024 10:51 AM CDT Oxygen Saturation 97% 09/06/2024 10:51 AM CDT Inhaled Oxygen Concentration - - Weight 115.7 kg (255 lb) 09/06/2024 10:51 AM CDT Height 190.5 cm (6' 3) 02/13/2024 12:32 PM CDT Body Mass Index 31.87 02/13/2024 12:32 PM CDT Plan of Treatment Upcoming Encounters Date Type Department Care Team (Late st Contact Info) Description 12/06/2024 2:45 PM CDT Office Visit [facility] Oncology and Hematology - [place] [address] [facility] [address] [place] [address] Jadon Dominguez MD [address] [facility] [address] [place] [address] Health Maintenance Due Date Last [...] Associated Diagnosis Comments COMPREHENSIVE METABOLIC PANEL Routine 09/06/2024 2:54 PM CDT BASIC METABOLIC PANEL Routine 09/06/2024 2:37 PM CDT CBC WITH DIFFERENTIAL Routine 09/06/2024 2:34 PM CDT BASIC METABOLIC PANEL Routine 08/16/2024 3:53 PM CDT COMPREHENSIVE METABOLIC PANEL Routine 08/16/2024 3:30 PM CDT COMPREHENSIVE METABOLIC PANEL Routine 07/26/2024 2:51 PM CDT BASIC METABOLIC PANEL Routine 07/26/2024 11:46 AM CDT CBC WITH DIFFERENTIAL Routine 07/26/2024 11:43 AM CDT COMPREHENSIVE METABOLIC PANEL Routine 07/05/2024 10:56 AM [facility]AS from Last 3 Months Results * COMPREHENSIVE METABOLIC PANEL (09/06/2024 2:54 PM CDT) Only the most recent of4 resultswithin the time period is included. Blood us Jadon Dominguez MD CHEMISTRY ORDERABLES Final Resu lt * BASIC METABOLIC PANEL (09/06/2024 2:37 PM CDT) Only the most recent of3 resultswithin the time period is included. Blood us Jadon Dominguez MD CHEMISTRY ORDERABLES Final Resu lt * CBC WITH DIFFERENTIAL (09/06/2024 2:34 PM CDT) Only the most recent of2 resultswithin the time period is included. Blood us Jadon Dominguez MD HEMATOLOGY ORDERABLES Final Res ult from Last 3 Months Insurance [facility] CHOICE [id number] MEDICARE PART A AND B Care Teams Coastal And Estuary Specialist Relationship Specialty Start Date End Date Heber Fairbanks DO [address] [place] [address] PCP - General Family Practice 02/13/24
--- OUTSIDE RECORDS SUMMARY | 2024-09-30 16:47 | XMS_ITS | Encounter Summary ---
Author Organization [facility] [employer] [facility] Address [address] [place] [address] Care Team Providers Care Multifold Operator Name Role Phone Heber Fairbanks DO Primary Care Provider [phone] Encounter Details Date Type Department Care Team ([facility] Contact Info) Description 09/27/2024 Orders Only [facility] Oncology and [facility] [address] [place] [address] Jadon Dominguez MD [address] [place] [address] [employer] [address] [place] [address] Prostate cancer (CMS/HCC) Social History Tobacco [...] Department Care Team (Late Contact Info) Description 12/06/2024 2:45 PM CDT Office Visit [facility] Oncology and Hematology [facility] [address] [place] [address] Jadon Dominguez MD [facility] [employer] [address] [place] [address] documented as of this encounter Visit Diagnoses Diagnosis Prostate cancer (CMS/HCC) Malignant neoplasm of prostate documented in this encounter Care Teams Multifold Operator Relationship Specialty Start Date End Date Heber Fairbanks DO [address] [place] [address] PCP - General Family Practice 02/13/24 documented as of this encounter
[2024-09-30 16:55] LABS: Hemoglobin 11.9 g/dL (12.4-15.3); Mean Corpuscular HGB Conc 32.2 g/dL (32-36); Mean Corpuscular Hemoglobin 28.4 pg (27.0-31.0); Mean Corpuscular Volume 88.3 fL (78.0-102.0); Mean Platelet Volume 14.3 fl (8.7-11.0); Platelet Count Result 87 K/mm3 (150-420); Red Blood Count 4.19 M/mm3 (4.70-6.10); Red Cell Distribution Width 15.8 % (11.6-14.4); White Blood Count 7.9 K/mm3 (4.8-10.8)
[2024-09-30 17:25] LABS: Band Neutrophils Percent 0 % (0-6); Eosinophils Absolute Manual 0.94 K/mm3 (0.02-0.50); Eosinophils Percent Manual 12 % (1-6); Lymphocytes Percent Manual 14 % (18-44); Monocytes Absolute Manual 0.79 K/mm3 (0.1-0.90); Monocytes Percent Manual 10 % (3-9); Neutrophils Absolute Manual 4.89 K/mm3 (1.3-6.7); Neutrophils Percent Manual 62 % (46-73); Total Cells Counted 100
[2024-09-30 17:26] LABS: Platelet Estimate Decreased (Adequate); Schistocytes None Seen
== END 2024-09-30 16:44 | disposition home or self-care (01) ==
LOC: CHSLAB 16:45
PROVIDERS: PCP Family Medicine; Visit Provider Internal Medicine Hematology & Oncology
DX: D64.9 Anemia, unspecified (principal)
CPT/HCPCS: 36415; 85025; 85055

== ENCOUNTER 2024-12-01 08:46 | Outpatient (CLI) | payer OTHER, MEDICARE, SELFPAY ==
--- OUTSIDE RECORDS SUMMARY | 2024-12-01 08:59 | XMS_ITS | Clinical Summary ---
Author Organization [facility] Kayla Cleveland Address [address] [place] [address] Care Team Providers Care Batch Or Continuous Still Operator Name Role Phone Magdi Heber CHADWICK Primary Care Provider [phone] Allergies No known active allergies Medications tamsulosin [...] mouth daily. Take 1/2 tablet 5 Active amiodarone (CORDARONE) 200 mg tablet Take 200 mg by mouth daily. 5 Active dexAMETHasone (DECADRON) 4 mg tabletIndicati ons:Prostate cancer ([facility]) TAKE ONE TABLET BY MOUTH TWICE A DAY DAY BEFORE TREATMENT, DAY OF TREATMENT, AND DAY AFTER TREATMENT. 6 Tablet 1 5 Active Active Problems No known active problems Encounters Date Type Department Care Team Description 11/22/2024 Orders Only [facility] Oncology and Hematology - [place] [address] Jadon Dominguez MD Prostate cancer ([facility]) 11/08/2024 Orders Only [facility] Oncology and Hematology - [place] [address] [place] [phone] Jadon Dominguez MD Prostate cancer ([facility]) 10/25/2024 Orders Only [facility] Oncology and Hematology - [place] [address] [place] [phone] Jadon Dominguez MD Prostate cancer ([facility]) 10/11/2024 Orders Only [facility] Oncology and Hematology - [place] [address] [place] [address] Jadon Dominguez MD Prostate cancer ([facility]) 10/01/2024 Orders Only [facility] Oncology and Hematology - [place] [address] [place] [phone] Jadon Dominguez MD 09/27/2024 Orders Only [facility] Oncology and Hematology - [place] [address] [place] [phone] Jadon Dominguez MD Prostate cancer ([facility]) 09/14/2024 Orders Only [facility] Oncology and Hematology - [place] [address] [place] [address] Jadon Dominguez MD 09/13/2024 Orders Only [facility] Oncology and Hematology - [place] [address] [place] [phone] Jadon Dominguez MD Prostate cancer ([facility]/HCC) 09/09/2024 Refill [facility] Oncology and Hematology - [place] [address] [place] [address] Jadon Dominguez MD Prostate cancer ([facility]) 09/07/2024 Orders Only [facility] Oncology and Hematology - [place] [address] [place] [phone] Jadon Dominguez MD 09/06/2024 11:00 AM CDT Office Visit [facility] Oncology and Hematology - [place] [address] [place] [phone] Jadon Dominguez MD Prostate cancer ([facility]) (Primary Dx) 09/06/2024 Orders Only [facility] Oncology and Hematology - [place] [address] [place] [phone] Jadon Dominguez MD Chronic anemia (Primary Dx) from Last 3 Months Family History Medical [...] Description 12/06/2024 2:45 PM CDT Office Visit [facility] Oncology and Hematology [facility] [address] [facility] [address] [place] [address] Jadon Dominguez MD [address] [facility] [address] [place] [address] Health Maintenance Due Date Last Done Comments Pre-Diabetes and Diabetes Screening 1960 DTAP/TDAP/TD VACCINES (1 - Tdap) 1977 COLORECTAL SCREENING 10/15/2003 Colorectal Cancer Screening 10/15/2003 FIT-DNA Q 3 years 10/15/2003 FIT/FOBT Q 1 year 10/15/2003 Flex Sig/CT Colonography Q 5 years 10/15/2003 PNEUMOCOCCAL VACCINE 50+ YEARS (1 of 1 - PCV) 10/15/19 09 ZOSTER VACCINE (1 of 2) 2008 Preventative Visit- Commercial 05/05/2024 INFLUENZA VACCINE (#1) 2024 RSV VACCINE (60+ or ) (1 - 1-dose 75+ series) 2033 Procedures Procedure Name Priority Date/Time Associated Diagnosis Comments CBC WITH DIFFERENTIAL Routine 09/30/2024 12:09 PM CDT COMPREHENSIVE METABOLIC PANEL Routine 09/06/2024 2:54 PM CDT BASIC METABOLIC PANEL Routine 09/06/2024 2:37 PM CDT CBC WITH DIFFERENTIAL Routine 09/06/2024 2:34 PM CDT from Last 3 Months Results * CBC WITH DIFFERENTIAL (09/30/2024 12:09 PM CDT) Only the most recent of2 resultswithin the time period is included. Blood Jadon Dominguez MD HEMATOLOGY ORDERABLES Final Res ult * COMPREHENSIVE METABOLIC PANEL (09/06/2024 2:54 PM CDT) Blood Jadon Dominguez MD CHEMISTRY ORDERABLES Final Resu lt * BASIC METABOLIC PANEL (09/06/2024 2:37 PM CDT) Blood Jadon Dominguez MD CHEMISTRY ORDERABLES Final Resu lt from Last 3 Months Insurance [facility] CHOICE [id number] MEDICARE PART A AND B Care Teams Batch Or Continuous Still Operator Relationship Specialty Start Date End Date Heber Fairbanks DO [address] [place] [address] PCP - General Family Practice 02/13/24
[2024-12-01 09:02] LABS: Hematocrit 39.3 % (37.0-46.0); Hemoglobin 12.8 g/dL (12.4-15.3); Immature Granulocyte Percent A 0.6 % (0.0-0.0); Immature Platelet Fraction Pct 17.3 % (1.0-7.0); Lymphocytes Absolute Auto 1.26 K/mm3 (1.10-4.50); Mean Corpuscular HGB Conc 32.6 g/dL (32-36); Mean Corpuscular Hemoglobin 28.7 pg (27.0-31.0); Mean Corpuscular Volume 88.1 fL (78.0-102.0); Nucleated Red Blood Cells Absolute Auto 0.00 K/mm3 (0.00-0.00); Nucleated Red Blood Cells Perc 0.0 % (0-0.0); Platelet Count Result 73 K/mm3 (150-420); Red Blood Count 4.46 M/mm3 (4.70-6.10); White Blood Count 5.3 K/mm3 (4.8-10.8)
[2024-12-01 09:24] LABS: Alanine Aminotransferase 19 U/L (6-50); Albumin Level 3.8 g/dL (3.5-5.1); Alkaline Phosphatase 37 U/L (38-126); Anion Gap 3 mmol/L (4-12); Aspartate Amino Transferase 26 U/L (17-59); Bilirubin,Total 0.5 mg/dL (0.2-1.3); Blood Urea Nitrogen 13 mg/dL (9-20); Calcium 8.7 mg/dL (8.4-10.2); Carbon Dioxide 26 mmol/L (22-30); Chloride 110 mmol/L (98-107); Estimated Glomerular Filt Rate > 60; Glucose 108 mg/dL (65-110); Osmolality Calculated 289 mOsm/kg (285-295); Potassium 4.2 mmol/L (3.4-5.0); Sodium 139 mmol/L (137-145); Total Protein 6.0 g/dL (6.3-8.2)
[2024-12-01 09:55] LABS: Prostate Specific Antigen < 0.1 ng/mL (< OR = 4.0)
== END 2024-12-01 08:47 | disposition home or self-care (01) ==
PROVIDERS: PCP Family Medicine; Visit Provider Internal Medicine Hematology & Oncology
DX: C61 Malignant neoplasm of prostate (principal)
CPT/HCPCS: 36415; 80053; 84153; 85025; 85055

== ENCOUNTER 2025-03-01 11:24 | Outpatient (CLI) | payer OTHER, MEDICARE, SELFPAY ==
[2025-03-01 11:43] LABS: Hematocrit 40.2 % (37.0-46.0); Hemoglobin 13.0 g/dL (12.4-15.3); Immature Granulocyte Percent A 0.4 % (0.0-0.0); Immature Platelet Fraction Pct 18.7 % (1.0-7.0); Lymphocytes Absolute Auto 1.22 K/mm3 (1.10-4.50); Mean Corpuscular HGB Conc 32.3 g/dL (32-36); Mean Corpuscular Hemoglobin 29.1 pg (27.0-31.0); Mean Corpuscular Volume 90.1 fL (78.0-102.0); Nucleated Red Blood Cells Absolute Auto 0.00 K/mm3 (0.00-0.00); Nucleated Red Blood Cells Perc 0.0 % (0-0.0); Platelet Count Result 75 K/mm3 (150-420); Red Blood Count 4.46 M/mm3 (4.70-6.10); White Blood Count 4.8 K/mm3 (4.8-10.8)
[2025-03-01 11:53] LABS: Alanine Aminotransferase 21 U/L (6-50); Albumin Level 4.5 g/dL (3.5-5.1); Alkaline Phosphatase 39 U/L (38-126); Anion Gap 7 mmol/L (4-12); Aspartate Amino Transferase 27 U/L (17-59); Bilirubin,Total 0.8 mg/dL (0.2-1.3); Blood Urea Nitrogen 16 mg/dL (9-20); Calcium 10.0 mg/dL (8.4-10.2); Carbon Dioxide 29 mmol/L (22-30); Chloride 105 mmol/L (98-107); Estimated Glomerular Filt Rate 55; Glucose 109 mg/dL (65-110); Osmolality Calculated 294 mOsm/kg (285-295); Potassium 4.7 mmol/L (3.4-5.0); Sodium 141 mmol/L (137-145); Total Protein 7.9 g/dL (6.3-8.2)
[2025-03-01 12:23] LABS: Prostate Specific Antigen < 0.1 ng/mL (< OR = 4.0)
== END 2025-03-01 11:25 | disposition home or self-care (01) ==
PROVIDERS: PCP Family Medicine; Visit Provider Internal Medicine Hematology & Oncology
DX: C61 Malignant neoplasm of prostate (principal)
CPT/HCPCS: 36415; 80053; 84153; 85025; 85055

== ENCOUNTER 2025-03-08 08:54 | Outpatient (CLI) | payer OTHER, MEDICARE, SELFPAY ==
--- NOTE | ~2025-03-08 | CT_ITS ---
EXAMINATION: CT abdomen pelvis wo con DATE: 03/08/2025 09:12 INDICATION: Prostate cancer. TECHNIQUE: Computed tomography (CT) of the abdomen and pelvis was performed without intravenous contrast. Automated exposure control and iterative reconstruction technique were employed. The dose-length product was 933.15 mGy-cm. COMPARISON: CT abdomen and pelvis 08/19/2024 FINDINGS: The visualized portions of the lung bases demonstrate mild atelectasis. A calcified right lung nodule is consistent with old granulomatous disease. No pleural effusion. The heart size is normal. No pericardial effusion. There is a small sliding hiatal hernia. Calcifications in the liver and spleen are consistent with old granulomatous disease. The gallbladder, pancreas, adrenal glands, and kidneys are normal. There is no urolithiasis. The prostate is moderately enlarged. There is a left inguinal hernia containing fat. There is diverticulosis of the colon without evidence of diverticulitis. There are no dilated loops of bowel. The appendix is normal. There are no pathologically enlarged lymph nodes. There is no free intraperitoneal fluid. There are widespread scattered sclerotic lesions of bone. There is severe lumbar spondylosis. IMPRESSION: 1. Stable widespread sclerotic lesions of bone, consistent with metastatic disease. Reviewed, dictated and finalized at location E. HER CURRIER IMPRESSION: 1. Stable widespread sclerotic lesions of bone, consistent with metastatic dise ase.
--- OUTSIDE RECORDS SUMMARY | 2025-03-08 09:45 | XMS_ITS | Encounter Summary ---
Author Organization [facility] [employer] [facility] Address [address] [place] [address] Care Team Providers Care Business Analysis Professional Name Role Phone Heber Fairbanks DO Primary Care Provider [phone] Encounter Details Date Type Department Care Team (Late Contact Info) Description 03/02/2025 Orders Only [facility] Oncology and Hematology [place] [address] [place] [address] Jadon Dominguez MD [address] [facility] [address] [place] [address] Social History Tobacco Use Types Packs/Day Years [...] Department Care Team (Late Contact Info) Description 03/21/2025 2:00 PM 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 Office Visit [facility] Oncology and Hematology - [place] [address] [place] [address] Esperanza Hutchison MD [address] [place] [address] documented as of this encounter Procedures Procedure Name Priority Date/Time Associated Diagnosis Comments COMPREHENSIVE METABOLIC PANEL Routine 03/01/2025 10:40 AM CDT documented in this encounter Results * COMPREHENSIVE METABOLIC PANEL (03/01/2025 10:40 AM CDT) Blood us Jadon Dominguez MD CHEMISTRY ORDERABLES Final Resu lt documented in this encounter Visit Diagnoses Not on filedocumented in this encounter Care Teams Business Analysis Professional Relationship Specialty Start Date End Date Heber Fairbanks DO [address] [place] [address] PCP - General Family Practice 02/13/24 documented as of this encounter
--- OUTSIDE RECORDS SUMMARY | 2025-03-08 09:45 | XMS_ITS | Clinical Summary ---
Author Organization [facility] Kayla Cleveland Address [address] [place] [address] Care Team Providers Care Warehouse Coordinator Name Role Phone Heber Fairbanks DO Primary Care Provider [phone] Allergies No known active allergies Medications tamsulosin (FLOMAX) 0.4 mg capsule Take 0.4 mg by mouth daily. 01/02/2024 Active lidocaine-prilo tracee (EMLA) 2.5-2.5 % CreamIndication s:Prostate cancer ([facility]) Apply a quarter size amount to port site 30 minutes prior to access. 30 Gram 1 02/24/2024 Active metoprolol succinate (TOPROL XL) 25 mg Extended Release 24 hour tablet Take 25 mg by mouth daily. Take 1/2 tablet 06/10/2024 Active amiodarone (CORDARONE) 200 mg tablet Take 200 mg by mouth daily. 07/12/2024 Active Nubeqa 300 mg tablet Take 300 mg by mouth 2 times daily. 05/28/2024 Active calcium as CARBONATE-vitam in D3 (OS-DA 500+D) 500 mg-5 mcg (200 unit) tablet Take by mouth. Active Active Problems No known active problems Encounters Date Type Department Care Team Description 03/02/[address] [facility] Oncology and Hematology - [place] [address] [place] [address] Jadon Dominguez MD 02/28/[address] [facility] Oncology and Hematology - [place] [address] [place] [address] Jadon Dominguez MD Prostate cancer ([facility]) 02/14/[address] [facility] Oncology and Hematology - [place] [address] [place] [address] Jadon Dominguez MD Prostate cancer ([facility]) 01/31/[address] [facility] Oncology and Hematology - [place] [address] [place] [phone] Jadon Dominguez MD Prostate cancer ([facility]) 01/17/[address] [facility] Oncology and Hematology - [place] [address] [place] [phone] Jadon Dominguez MD Prostate cancer ([facility]) 01/03/[address] [facility] Oncology and Hematology - [place] [address] Jadon Dominguez MD Prostate cancer ([facility]) 12/21/[address] [facility] Oncology and Hematology - [place] [address] Jadon Dominguez MD Lab Results 12/20/[address] [facility] Oncology and Hematology - [place] [address] [place] [phone] Jadon Dominguez MD Prostate cancer ([facility]) 12/06/2024 2:45 PM CDT Office Visit [facility] Oncology and Hematology - [place] [address] [place] [phone] Jadon Dominguez MD Prostate cancer ([facility]) from Last 3 Months Family History Medical [...] Sign Reading Time Taken Comments Blood Pressure 127/68 12/06/2024 2:32 PM CDT Pulse 63 12/06/2024 2:32 PM CDT Temperature 36.3 C (97.4 F) 12/06/2024 2:32 PM CDT Respiratory Rate 15 12/06/2024 2:32 PM CDT Oxygen Saturation 95% 12/06/2024 2:32 PM CDT Inhaled Oxygen Concentration - - Weight 113.4 kg (250 lb) 12/06/2024 2:32 PM CDT Height 190.5 cm (6' 3) 02/13/2024 12:32 PM CDT Body Mass Index 31.25 02/13/2024 12:32 PM CDT Plan of Treatment Upcoming Encounters Date Type Department Care Team (Late st Contact Info) Description 03/21/2025 2:00 PM 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 Oncology and Hematology - [place] [address] [place] [address] Esperanza Hutchison MD [address] [place] [address] Health Maintenance Due Date Last Done Comments Pre-Diabetes and Diabetes Screening 1958 DTAP/TDAP/TD VACCINES (1 - Tdap) 1977 Traditional Medicare (ACO) Annual Wellness Visit 10/14 COLORECTAL SCREENING 10/15/2003 Colorectal Cancer Screening 10/15/2003 [...] METABOLIC PANEL Routine 03/01/2025 10:40 AM CDT from Last 3 Months Results * COMPREHENSIVE METABOLIC PANEL (03/01/2025 10:40 AM CDT) Blood Jadon Dominguez MD CHEMISTRY ORDERABLES Final Resu lt from Last 3 Months Insurance [facility] CHOICE [id number] MEDICARE PART A AND B Care Teams Warehouse Coordinator Relationship Specialty Start Date End Date Heber Fairbanks DO [address] [place] [address] PCP - General Family Practice 02/13/24
== END 2025-03-08 08:55 | disposition home or self-care (01) ==
LOC: CHSIMG 08:57
PROVIDERS: PCP Family Medicine; Visit Provider Internal Medicine Hematology & Oncology
DX: C61 Malignant neoplasm of prostate (principal); M89.9 Disorder of bone, unspecified
CPT/HCPCS: 74176

== ENCOUNTER 2025-03-22 12:29 | Outpatient (CLI) | payer OTHER, MEDICARE, SELFPAY ==
--- NOTE | 2025-03-22 12:34 | ECHO_ITS ---
Patient Info Name: Hao Rea Age: 64 years : 1960 Gender: Male Ht: 76 in Wt: 250 lbs BSA: 2.49 m2 HR: 54 bpm BP: 119 / 72 mmHg Technical Quality: Good Exam Date: 03/22/2025 12:35 PM Patient Status: O Admit Date: 03/22/2025 Exam Type: CA echo doppler color flow Complete two-dimensional, color flow and Doppler transthoracic echocardiogram is performed. Insect Control Inspector: Josephine Brandt Attending Provider: Terence Woods DO Summary 1. Complete two-dimensional, color flow and Doppler transthoracic echocardiogram is performed. 2. Left ventricular chamber dimension is normal. 3. Left ventricular systolic function is normal, estimated at 60-65. 4. There is moderate concentric increased left ventricular wall thickness. 5. The left ventricular diastolic function is abnormal. 6. E/e' 14 is mildly elevated. 7. Left atrial chamber dimension is severely enlarged. 8. Right atrial chamber dimension is moderately enlarged. 9. There is mild aortic valve sclerosis. 10. There is mild aortic valve regurgitation. 11. The mitral valve has severely posterior prolapse. 12. There is mild mitral valve regurgitation. 13. The prox ascending aorta size is borderline dilated at 4.1 cm. Left Ventricle E/e' 14 is mildly elevated. Left ventricular chamber dimension is normal. Left ventricular systolic function is normal, estimated at 60-65. There is moderate concentric increased left ventricular wall thickness. The left ventricular diastolic function is abnormal. Right Ventricle Right ventricular chamber dimension is normal. Right ventricular systolic function is normal. Left Atria Left atrial chamber dimension is severely enlarged. Right Atria Right atrial chamber dimension is moderately enlarged. Aortic Valve The aortic valve is trileaflet. There is mild aortic valve sclerosis. There is no aortic valve stenosis. There is mild aortic valve regurgitation. Pulmonic Valve There is no pulmonic regurgitation. Mitral Valve The mitral valve has severely posterior prolapse. There is no mitral valve stenosis. There is mild mitral valve regurgitation. Tricuspid Valve There is no tricuspid valve regurgitation. Pericardium/Pleural There is no pericardial effusion. Inferior Vena Cava Normal inferior vena cava with >50% collapse upon inspiration consistent with normal right atrial pressure, 5 mmHg. Aorta The aortic root size at the sinus of Valsalva is normal. The prox ascending aorta size is borderline dilated at 4.1 cm. Left Ventricular Outflow Tract Name Value Normal LVOT 2D LVOT Diameter 2.5 cm LVOT Doppler LVOT Peak Velocity 135 cm/s LVOT Peak Gradient 7 mmHg LVOT Mean Gradient 4 mmHg LVOT VTI 31 cm LVOT Stroke Volume 149 ml LVOT CO 8.0 l/min LVOT CI 3.2 l/min/m2 Pulmonic Valve Name Value Normal RVOT Doppler RVOT Peak Velocity 83 cm/s RVOT Peak Gradient 3 mmHg PV Doppler PV Peak Velocity 114 cm/s PV Peak Gradient 5 mmHg Mitral Valve Name Value Normal MV Doppler MV Peak Gradient 8 mmHg MV Mean Gradient 3 mmHg MV Area (Cont Eq VTI) 2.7 cm2 MV Regurgitation Doppler MR Peak Gradient 87 mmHg MV Diastolic Function MV E Peak Velocity 125 cm/s MV A Peak Velocity 107 cm/s MV E/A 1.2 MV Decel Time (PW) 244 ms MV Annular TDI MV E/e' (Septal) 16.7 MV E/e' (Lateral) 12.3 MV E/e' (Average) 14.5 Tricuspid Valve Name Value Normal Estimated PAP/RSVP RA Pressure 5 mmHg <=5 Aortic Valve Name Value Normal AV Doppler AV Peak Velocity 176 cm/s AV Peak Gradient 12 mmHg AV Area (Cont Eq Jarvis) 3.6 cm2 AV DI (Jarvis) 0.77 AV Regurgitation 2D LVOT Area 4.8 cm2 Ventricles Name Value Normal LV Dimensions 2D/MM IVS Diastolic Thickness (2D) 1.3 cm 0.6-1.0 LVID Diastole (2D) 5.3 cm 4.2-5.8 LVIW Diastolic Thickness (2D) 1.6 cm 0.6-1.0 LVID Systole (2D) 3.3 cm 2.5-4.0 LVOT Diameter 2.5 cm LV Mass (2D Cubed) 346.97 g 88.00-224.00 LV Mass Index (2D Cubed) 139 g/m2 49-115 Relative Wall Thickness (2D) 0.60 <=0.42 LV Fractional Shortening/Ejection Fraction 2D/MM LV Fractional Shortening (2D) 38 % 25-43 LV EF (2D Teichholz) 68 % LV Diastolic Volume (4C MOD) 219 ml LV EF (4C MOD) 62 % LV Diastolic Volume (2C MOD) 200 ml LV EF (2C MOD) 64 % LV Diastolic Volume (BP MOD) 215 ml 62-150 LV Diastolic Volume Index (BP MOD) 86 ml/m2 34-74 LV Systolic Volume (BP MOD) 78 ml 21-61 LV Systolic Volume Index (BP MOD) 31 ml/m2 11-31 LV EF (BP MOD) 64 % 52-72 LV Diastolic Length (4C) 9.4 cm LV Systolic Length (4C) 7.8 cm LV Stroke Volume (4C MOD) 136 ml Atria Name Value Normal LA Dimensions LA Volume (4C A-L) 133 ml LA Volume (BP A-L) 130 ml RA Dimensions RA Systolic Major [place] Length (4C) 6.3 cm 2.1-2.7 RA Area (4C) 25.1 cm2 <=18.0 Report Signatures
== END 2025-03-22 12:30 | disposition home or self-care (01) ==
PROVIDERS: PCP Family Medicine; Visit Provider Internal Medicine Cardiovascular Disease
DX: I34.1 Nonrheumatic mitral (valve) prolapse (principal); I08.0 Rheumatic disorders of both mitral and aortic valves
CPT/HCPCS: 93306